=== PATIENT | male | born 1985 | race Caucasian/White ===

== ENCOUNTER 2021-12-02 17:53 | Inpatient (IN) | payer MEDICAID, OTHER ==
[2021-12-02] MEDS ORDERED: ACETAMINOPHEN TAB 500 MG TAB PO STA (19:30)
[2021-12-02] MEDS ORDERED: SODIUM CHLORIDE 0.9% 1,000 ML IV STA (19:32)
--- NOTE | 2021-12-02 19:48 | ED ---
SOB HPI - General Chief Complaint: Shortness of Breath Stated Complaint: TRINI Time Seen by Provider: 12/02/21 19:32 Source: patient, RN notes reviewed Mode of arrival: wheelchair Limitations: physical limitation - History of Present Illness Initial Comments: This is a pleasant 36-year-old male who was sent to the ER from urgent care for shortness of breath. Patient states that he had an [id number] COVID-19 test which was positive November 19. Patient proceeded to get better but then worse again. Patient has had a fever, increasing shortness of breath. Patient also complaining of fatigue, body aches, and cough. Patient now stating that he is having difficulty walking. Patient has no significant past medical history. He does state that he previously had pneumonia. Nonsmoker. no changes in vision or hearing, no sore throat or difficulty with speech, no neck pain, no chest pain, no abdominal pain, no nausea or vomiting, no changes in urination or bowel movements, no numbness or tingling, no extremity pain, no skin rashes or lesions. MD Complaint: shortness of breath - Related Data Home Medications Medication Instructions Recorded Confirmed Amoxicillin/Potassium Clav 1 tab PO BID 12/02/21 12/02/21 [Augmentin 875-125 Tablet] Eslicarbazepine Acetate [Aptiom] 800 mg PO DAILY 12/02/21 12/02/21 Topiramate 200 mg PO BID 12/02/21 12/02/21 Allergies Allergy/AdvReac Type Severity Reaction Status Date / Time No Known Allergies Allergy Verified 12/02/21 20:54 Review of Systems ROS Statement: Those systems with pertinent positive or pertinent negative responses have been documented in the HPI. ROS Other: All systems not noted in ROS Statement are negative. Past Medical History Past Medical History: Seizure Disorder History of Any Multi-Drug Resistant Organisms: None Reported Past Surgical History: No Surgical Hx Reported Past Psychological History: No Psychological Hx Reported Smoking Status: Never smoker Past Alcohol Use History: None Reported Past Drug Use History: None Reported General Exam - General Exam Comments Initial Comments: Patient appears to be in distress secondary to difficulty breathing. Vital signs noted. Limitations: physical limitation General appearance: alert, in no apparent distress Head exam: Present: atraumatic, normocephalic, normal inspection Eye exam: Present: normal appearance, PERRL, EOMI. Absent: scleral icterus, conjunctival injection, periorbital swelling ENT exam: Present: normal exam, mucous membranes moist. Absent: normal oropharynx, mucous membranes dry Neck exam: Present: normal inspection. Absent: tenderness, meningismus, lymphadenopathy Respiratory exam: Present: normal lung sounds bilaterally, rales. Absent: respiratory distress, wheezes, rhonchi, stridor Cardiovascular Exam: Present: normal rhythm, tachycardia, normal heart sounds. Absent: systolic murmur, diastolic murmur, rubs, gallop, clicks GI/Abdominal exam: Present: soft, normal bowel sounds. Absent: distended, tenderness, guarding, rebound, rigid Extremities exam: Present: normal inspection, full ROM, normal capillary refill. Absent: tenderness, pedal edema, joint swelling, calf tenderness Back exam: Present: normal inspection Neurological exam: Present: alert, oriented X3, CN II-XII intact Psychiatric exam: Present: normal affect, normal mood Skin exam: Present: warm, dry, intact, normal color. Absent: rash Course Vital Signs 12/02/21 12/02/21 12/02/21 19:22 19:48 21:37 Temperature 101.7 F H 100.1 F H 98.9 F Pulse Rate 124 H 117 H 95 Respiratory 24 18 18 Rate Blood Pressure 106/69 130/86 130/86 O2 Sat by Pulse 93 L 96 Oximetry 12/02/21 12/03/21 12/03/21 23:31 01:08 03:08 Temperature Pulse Rate 86 83 72 Respiratory 20 18 18 Rate Blood Pressure 143/86 133/90 133/90 O2 Sat by Pulse 85 L 95 93 L Oximetry - Reevaluation(s) Reevaluation #1: 12/02/21 20:44 Patient's d-dimer is 4.22 patient rechecked and it is essentially unchanged. Reevaluation #2: 12/02/21 23:38 Patient reevaluated E ambulated the patient room air and he desaturated down to 85%. Patient will require admission to the hospital. Consultation placed for the hospitalist. Medical Decision Making - Medical Decision Making The patient's symptomology, patient likely has COVID-19 pneumonia. Of course other viral/bacterial etiologies are within the differential. Given that fact that the patient started to get better then worse again. Pulmonary embolism also within the differential. Case was discussed in detail [facility] Travis Oreilly patient admitted to Dr. Benton Patient outside the window for them to severe. Given dexamethasone here in the ER. Patient resting complaint on 3 L of oxygen via nasal cannula at rest. - Lab Data Result diagrams: 12/02/21 19:54 12/02/21 19:54 Lab Results 12/02/21 12/02/21 12/02/21 Range/Units 19:54 19:54 19:54 WBC 12.6 H (3.8-10.6) k/uL RBC 4.70 (4.30-5.90) m/uL Hgb 13.3 (13.0-17.5) gm/dL Hct 40.1 (39.0-53.0) % MCV 85.4 (80.0-100.0) fL MCH 28.4 (25.0-35.0) pg MCHC 33.3 (31.0-37.0) g/dL RDW 12.8 (11.5-15.5) % Plt Count 830 H (150-450) k/uL MPV 7.4 Neutrophils % 86 % Lymphocytes % 6 % Monocytes % 4 % Eosinophils % 2 % Basophils % 1 % Neutrophils # 10.9 H (1.3-7.7) k/uL Lymphocytes # 0.8 L (1.0-4.8) k/uL Monocytes # 0.5 (0-1.0) k/uL Eosinophils # 0.3 (0-0.7) k/uL Basophils # 0.1 (0-0.2) k/uL D-Dimer (<0.60) mg/L FEU Sodium 138 (137-145) mmol/L Potassium 4.3 (3.5-5.1) mmol/L Chloride 110 H (98-107) mmol/L Carbon Dioxide 17 L (22-30) mmol/L Anion Gap 11 mmol/L BUN 17 (9-20) mg/dL Creatinine 0.89 (0.66-1.25) mg/dL Est GFR (CKD-EPI)AfAm >90 (>60 ml/min/1.73 sqM) Est GFR (CKD-EPI)NonAf >90 (>60 ml/min/1.73 sqM) Glucose 117 H (74-99) mg/dL Lactic Ac Sepsis Rflx Plasma Lactic Acid Rajendra 2.3 H* (0.7-2.0) mmol/L Calcium 8.4 (8.4-10.2) mg/dL Magnesium 2.6 H (1.6-2.3) mg/dL Total Bilirubin 0.6 (0.2-1.3) mg/dL AST 80 H (17-59) U/L ALT 116 H (4-49) U/L Alkaline Phosphatase 197 H (38-126) U/L Lactate Dehydrogenase (313-618) U/L Troponin I (0.000-0.034) ng/mL C-Reactive Protein (<1.0) mg/dL Total Protein 7.4 (6.3-8.2) g/dL Albumin 3.4 L (3.5-5.0) g/dL Influenza Type A (PCR) (Not Detectd) Influenza Type B (PCR) (Not Detectd) RSV (PCR) (Not Detectd) SARS-CoV-2 (PCR) (Not Detectd) 12/02/21 12/02/21 12/02/21 Range/Units 19:54 19:54 19:54 WBC (3.8-10.6) k/uL RBC (4.30-5.90) m/uL Hgb (13.0-17.5) gm/dL Hct (39.0-53.0) % MCV (80.0-100.0) fL MCH (25.0-35.0) pg MCHC (31.0-37.0) g/dL RDW (11.5-15.5) % Plt Count (150-450) k/uL MPV Neutrophils % % Lymphocytes % % Monocytes % % Eosinophils % % Basophils % % Neutrophils # (1.3-7.7) k/uL Lymphocytes # (1.0-4.8) k/uL Monocytes # (0-1.0) k/uL Eosinophils # (0-0.7) k/uL Basophils # (0-0.2) k/uL D-Dimer 4.22 H (<0.60) mg/L FEU Sodium (137-145) mmol/L Potassium (3.5-5.1) mmol/L Chloride (98-107) mmol/L Carbon Dioxide (22-30) mmol/L Anion Gap mmol/L BUN (9-20) mg/dL Creatinine (0.66-1.25) mg/dL Est GFR (CKD-EPI)AfAm (>60 ml/min/1.73 sqM) Est GFR (CKD-EPI)NonAf (>60 ml/min/1.73 sqM) Glucose (74-99) mg/dL Lactic Ac Sepsis Rflx Plasma Lactic Acid Rajendra (0.7-2.0) mmol/L Calcium (8.4-10.2) mg/dL Magnesium (1.6-2.3) mg/dL Total Bilirubin (0.2-1.3) mg/dL AST (17-59) U/L ALT (4-49) U/L Alkaline Phosphatase (38-126) U/L Lactate Dehydrogenase (313-618) U/L Troponin I <0.012 (0.000-0.034) ng/mL C-Reactive Protein (<1.0) mg/dL Total Protein (6.3-8.2) g/dL Albumin (3.5-5.0) g/dL Influenza Type A (PCR) Not Detected (Not Detectd) Influenza Type B (PCR) Not Detected (Not Detectd) RSV (PCR) Not Detected (Not Detectd) SARS-CoV-2 (PCR) Detected A (Not Detectd) 12/02/21 12/02/21 12/02/21 Range/Units 19:54 21:04 23:17 WBC (3.8-10.6) k/uL RBC (4.30-5.90) m/uL Hgb (13.0-17.5) gm/dL Hct (39.0-53.0) % MCV (80.0-100.0) fL MCH (25.0-35.0) pg MCHC (31.0-37.0) g/dL RDW (11.5-15.5) % Plt Count (150-450) k/uL MPV Neutrophils % % Lymphocytes % % Monocytes % % Eosinophils % % Basophils % % Neutrophils # (1.3-7.7) k/uL Lymphocytes # (1.0-4.8) k/uL Monocytes # (0-1.0) k/uL Eosinophils # (0-0.7) k/uL Basophils # (0-0.2) k/uL D-Dimer (<0.60) mg/L FEU Sodium (137-145) mmol/L Potassium (3.5-5.1) mmol/L Chloride (98-107) mmol/L Carbon Dioxide (22-30) mmol/L Anion Gap mmol/L BUN (9-20) mg/dL Creatinine (0.66-1.25) mg/dL Est GFR (CKD-EPI)AfAm (>60 ml/min/1.73 sqM) Est GFR (CKD-EPI)NonAf (>60 ml/min/1.73 sqM) Glucose (74-99) mg/dL Lactic Ac Sepsis Rflx Y Plasma Lactic Acid Rajendra 1.3 (0.7-2.0) mmol/L Calcium (8.4-10.2) mg/dL Magnesium (1.6-2.3) mg/dL Total Bilirubin (0.2-1.3) mg/dL AST (17-59) U/L ALT (4-49) U/L Alkaline Phosphatase (38-126) U/L Lactate Dehydrogenase 1613 H (313-618) U/L Troponin I (0.000-0.034) ng/mL C-Reactive Protein 25.6 H (<1.0) mg/dL Total Protein (6.3-8.2) g/dL Albumin (3.5-5.0) g/dL Influenza Type A (PCR) (Not Detectd) Influenza Type B (PCR) (Not Detectd) RSV (PCR) (Not Detectd) SARS-CoV-2 (PCR) (Not Detectd) - EKG Data EKG Comments: EKG done at 2017 and read by the ED attending physician reveals right bundle branch like with QRS duration of 122 ms. No evidence of ST elevation or acute ST or T-wave changes. Normal axis. Sinus tachycardia rate of 114. Disposition Clinical Impression: Acute respiratory failure due to COVID-19, Pneumonia due to COVID-19 virus Disposition: ADMITTED IP TO THIS HOSP Condition: Fair Is patient prescribed a controlled substance at d/c from ED?: No Decision Time: 00:04
[2021-12-02 20:27] LABS: Basophils # (A) 0.1 k/uL (0-0.2); Basophils % (A) 1 %; Eosinophils # (A) 0.3 k/uL (0-0.7); Eosinophils % (A) 2 %; HCT 40.1 % (39.0-53.0); HGB 13.3 gm/dL (13.0-17.5); Lymphocytes # (A) 0.8 k/uL (1.0-4.8); Lymphocytes % (A) 6 %; MCH 28.4 pg (25.0-35.0); MCHC 33.3 g/dL (31.0-37.0); MCV 85.4 fL (80.0-100.0); Mean Platelet Volume 7.4; Monocytes # (A) 0.5 k/uL (0-1.0); Monocytes % (A) 4 %; Neutrophils # (A) 10.9 k/uL (1.3-7.7); Neutrophils % (A) 86 %; Platelet Count 830 k/uL (150-450); RDW 12.8 % (11.5-15.5); WBC 12.6 k/uL (3.8-10.6)
[2021-12-02 21:04] LABS: ALT 116 U/L (4-49); AST 80 U/L (17-59); African American GFR (CKD) >90 (>60 ml/min/1.73 sqM); Albumin 3.4 g/dL (3.5-5.0); Alkaline Phosphatase 197 U/L (38-126); Anion Gap 11 mmol/L; Blood Urea Nitrogen 17 mg/dL (9-20); Calcium 8.4 mg/dL (8.4-10.2); Carbon Dioxide 17 mmol/L (22-30); Chloride 110 mmol/L (98-107); Glucose 117 mg/dL (74-99); Magnesium 2.6 mg/dL (1.6-2.3); Non-African American GFR(CKD) >90 (>60 ml/min/1.73 sqM); Potassium 4.3 mmol/L (3.5-5.1); Sodium 138 mmol/L (137-145); Total Bilirubin 0.6 mg/dL (0.2-1.3); Total Protein 7.4 g/dL (6.3-8.2)
--- NOTE | 2021-12-02 21:22 | XR ---
EXAMINATION TYPE: XR chest 2V DATE OF EXAM: 12/02/2021 COMPARISON: None available HISTORY: Difficulty breathing TECHNIQUE: Frontal and lateral views of the chest are obtained. FINDINGS: There is bilateral diffuse patchy opacities. No pleural effusion, or pneumothorax seen. T he cardiac silhouette size is within normal limits. The osseous structures are intact. IMPRESSION: Diffuse infiltrates.
--- NOTE | 2021-12-02 22:20 | CT ---
EXAMINATION TYPE: CT angio chest DATE OF EXAM: 12/02/2021 COMPARISON: None HISTORY: Elevated d-dimer and covid. CT DLP: 492.8 mGycm Automated exposure control for dose reduction was used. CONTRAST: Performed with IV Contrast, patient injected with 100ml mL of Isovue 370. There are Three-D postprocessed images. There is extensive patchy airspace infiltrate with multiple air bronchograms throughout both lung fie lds. There is no pleural effusion. There is no pericardial effusion. Heart size is fairly normal. There is no mediastinal adenopathy. There are no hilar masses. Heart size is fairly normal. There is normal contrast opacification of the pulmonary arteries. There are no filling defects. Thoracic aorta is intact. There is no aneurysm or dissection. Thoracic vertebra show multiple vertebra with slight anterior wedging involving T2 and T3 and T4 T5 T 6 and T10 vertebra. There is up to 5% loss of height. Sternum is intact. The upper abdominal soft tis sues are intact. IMPRESSION: No evidence of pulmonary embolism. Extensive multifocal pneumonia.
[2021-12-02] MEDS ORDERED: DEXAMETHASONE SOD PHOSPHATE 4 MG/ML 1 ML VIAL IVP STA (23:39)
[2021-12-02] MEDS ORDERED: ACETAMINOPHEN TAB 500 MG TAB PO PRN (23:49)
[2021-12-03] MEDS: ENOXAPARIN 60 MG/0.6 ML SYRINGE SQ SCH ×2 (00:18→08:40)
[2021-12-03 02:22] LABS: C Reactive Protein 25.6 mg/dL (<1.0)
[2021-12-03 07:30] LABS: ALT 95 U/L (4-49); AST 48 U/L (17-59); African American GFR (CKD) >90 (>60 ml/min/1.73 sqM); Alkaline Phosphatase 163 U/L (38-126); Anion Gap 11 mmol/L; Blood Urea Nitrogen 16 mg/dL (9-20); Calcium 8.2 mg/dL (8.4-10.2); Carbon Dioxide 17 mmol/L (22-30); Chloride 112 mmol/L (98-107); Glucose 141 mg/dL (74-99); LDH 1103 U/L (313-618); Non-African American GFR(CKD) >90 (>60 ml/min/1.73 sqM); Potassium 4.9 mmol/L (3.5-5.1); Sodium 140 mmol/L (137-145); Total Bilirubin 0.5 mg/dL (0.2-1.3); Total Protein 6.6 g/dL (6.3-8.2)
[2021-12-03 07:46] LABS: Basophils # (A) 0.1 k/uL (0-0.2); Basophils % (A) 1 %; Eosinophils % (A) 1 %; HCT 38.4 % (39.0-53.0); HGB 12.4 gm/dL (13.0-17.5); Lymphocytes # (A) 0.5 k/uL (1.0-4.8); Lymphocytes % (A) 6 %; MCH 28.4 pg (25.0-35.0); MCHC 32.2 g/dL (31.0-37.0); MCV 88.4 fL (80.0-100.0); Mean Platelet Volume 7.5; Monocytes # (A) 0.3 k/uL (0-1.0); Monocytes % (A) 4 %; Neutrophils # (A) 6.7 k/uL (1.3-7.7); Neutrophils % (A) 87 %; Platelet Count 852 k/uL (150-450); RBC 4.35 m/uL (4.30-5.90); RDW 13.4 % (11.5-15.5); WBC 7.7 k/uL (3.8-10.6)
[2021-12-03 07:52] LABS: C Reactive Protein 21.4 mg/dL (<1.0)
[2021-12-03] MEDS: ALBUTEROL HFA INHALER INHALATION PRN (08:36)
[2021-12-03] MEDS: DEXAMETHASONE SOD PHOSPHATE 10 MG/ML 1 ML VIAL IV SCH (08:40)
--- NOTE | 2021-12-03 10:36 | P.CNPUL ---
History of Present Illness Consult date: 12/03/21 Reason for consult: dyspnea, pneumonia History of present illness: 36-year-old male coming in for COVID 19 related pneumonia. Origin infection was on 11/19/2022. The patient since then has been having progressive worsening shortness of breath. He had a pulse oximeter at home. While at rest, he was maintaining her pulse ox above 90%. With activity, he was desaturating. He was having body aches and fever and shortness of breath and a dry cough and difficulties with shortness of breath with mobility and activity. No previous history of DVT or pulmonary embolism. He came into the emergency of the chest that showed diffuse bilateral pulmonary infiltrates. The computed tomography scan of the chest showed evidence of bilateral COVID 19 related pneumonia that was quite extensive. No evidence of any pulmonary embolism. The patient had multiple vertebral wedging involving T2 and T3 and T4 and T5 and T6 and T10. The patient has not received any outpatient treatment. No steroid intake. No use of any monoclonal antibodies. He has taken only one messenger RNA vaccination approximately a week prior to his infection. He has taken the [employer] shots. No altered mentation. No nausea or vomiting or abdominal pain. His blood work is showing a elevated elevated inflammatory markers. His d-dimer is at 3.17. LDH level was 1613. CRP level is at 25.6. Troponin is a been negative. Rest of the electrolytes were essentially adequate and the patient has a component of non-anion gap metabolic acidosis with a serum bicarb of 17. The white cell count was at 7.7 with a hemoglobin of 12.4. His comorbid conditions included seizure disorder which is currently inactive and stable on treatment. Review of Systems Constitutional: Reports fatigue, Reports weakness Eyes: denies as per HPI, denies blurred vision, denies bulging eye, denies decreased vision, denies diplopia, denies discharge, denies dry eye, denies irritation, denies itching, denies pain, denies photophobia, denies loss of peripheral vision, denies loss of vision, denies tunnel vision/blind spots Ears: deny: decreased hearing, ear discharge, earache, tinnitus Ears, nose, mouth and throat: Reports as per HPI Breasts: absent: as per HPI, gynecomastia Cardiovascular: Reports decreased exercise tolerance, Reports dyspnea on exertion Respiratory: Reports cough, Reports dyspnea Gastrointestinal: Reports as per HPI Genitourinary: Reports as per HPI Musculoskeletal: Reports as per HPI Musculoskeletal: absent: ankle pain, ankle stiffness, ankle swelling, as per HPI, elbow pain, elbow stiffness, elbow swelling, foot pain, foot stiffness, foot swelling, hand pain, hand stiffness, hand swelling, hip pain, hip stiffness, hip swelling, knee pain, knee stiffness, knee swelling, shoulder pain, shoulder stiffness, shoulder swelling, wrist pain, wrist stiffness, wrist swelling Integumentary: Reports as per HPI Neurological: Reports as per HPI Psychiatric: Reports as per HPI Endocrine: Reports as per HPI Hematologic/Lymphatic: Reports as per HPI Allergic/Immunologic: Reports as per HPI Past Medical History Past Medical History: Seizure Disorder History of Any Multi-Drug Resistant Organisms: None Reported Past Surgical History: No Surgical Hx Reported Past Psychological History: No Psychological Hx Reported Smoking Status: Never smoker Past Alcohol Use History: None Reported Past Drug Use History: None Reported Medications and Allergies Home Medications Medication Instructions Recorded Confirmed Type Amoxicillin/Potassium Clav 1 tab PO BID 12/02/21 12/02/21 History [Augmentin 875-125 Tablet] Eslicarbazepine Acetate [Aptiom] 800 mg PO DAILY 12/02/21 12/02/21 History Topiramate 200 mg PO BID 12/02/21 12/02/21 History Allergies Allergy/AdvReac Type Severity Reaction Status Date / Time No Known Allergies Allergy Verified 12/02/21 20:54 Physical Exam Vitals: Vital Signs Temp Pulse Resp BP Pulse Ox 12/03/21 08:44 97.9 F 97 20 131/81 94 L 12/03/21 08:22 92 L 12/03/21 06:02 72 18 124/84 97 12/03/21 04:29 70 18 136/85 95 12/03/21 03:08 72 18 133/90 93 L 12/03/21 01:08 83 18 133/90 95 12/02/21 23:31 86 20 143/86 85 L 12/02/21 21:37 98.9 F 95 18 130/86 96 12/02/21 19:48 100.1 F H 117 H 18 130/86 93 L 12/02/21 19:22 101.7 F H 124 H 24 106/69 Intake and Output 12/02/21 12/03/21 12/03/21 22:59 06:59 14:59 Other: Weight 104.326 kg Gen. appearance the patient is calm and comfortable and currently is on 5 L nasal cannula, breathing is nonlabored. He has occasional dry cough. Head exam was generally normal. There was no scleral icterus or corneal arcus. Mucous membranes were moist. Neck was supple and without jugular venous distension, thyromegaly, or carotid bruits. Carotids were easily palpable bilaterally. There was no adenopathy. Lungs other the medicine the patient's crackles in the mid and lower lung his bilaterally and these are soft crackles Cardiac exam revealed the PMI to be normally situated and sized. The rhythm was regular and no extrasystoles were noted during several minutes of auscultation. The first and second heart sounds were normal and physiologic splitting of the second heart sound was noted. There were no murmurs, rubs, clicks, or gallops. Abdominal exam revealed normal bowel sounds. The abdomen was soft, non-tender, and without masses, organomegaly, or appreciable enlargement of the abdominal aorta. Examination of the extremities revealed easily palpable radial, femoral and pedal pulses. There was no cyanosis, clubbing or edema. Neurologically, the patient is awake and alert and the patient does not have any focal neurological deficit. Cranial nerves are essentially intact. Examination of the skin revealed no evidence of significant rashes, suspicious appearing nevi or other concerning lesions. Results - Laboratory Findings CBC and BMP: 12/03/21 06:28 12/03/21 06:28 PT/INR, D-dimer D-Dimer 3.17 mg/L FEU (<0.60) H 12/03/21 06:28 Abnormal lab findings: Abnormal Labs 12/02/21 12/02/21 12/02/21 19:54 19:54 19:54 WBC 12.6 H Hgb Hct Plt Count 830 H Neutrophils # 10.9 H Lymphocytes # 0.8 L D-Dimer Chloride 110 H Carbon Dioxide 17 L Glucose 117 H Plasma Lactic Acid Rajendra 2.3 H* Calcium Magnesium 2.6 H Ferritin AST 80 H ALT 116 H Alkaline Phosphatase 197 H Lactate Dehydrogenase C-Reactive Protein Albumin 3.4 L SARS-CoV-2 (PCR) 12/02/21 12/02/21 12/02/21 19:54 19:54 19:54 WBC Hgb Hct Plt Count Neutrophils # Lymphocytes # D-Dimer 4.22 H Chloride Carbon Dioxide Glucose Plasma Lactic Acid Rajendra Calcium Magnesium Ferritin 1234.0 H AST ALT Alkaline Phosphatase Lactate Dehydrogenase 1613 H C-Reactive Protein 25.6 H Albumin SARS-CoV-2 (PCR) Detected A 12/03/21 12/03/21 12/03/21 06:28 06:28 06:28 WBC Hgb 12.4 L Hct 38.4 L Plt Count 852 H Neutrophils # Lymphocytes # 0.5 L D-Dimer 3.17 H Chloride 112 H Carbon Dioxide 17 L Glucose 141 H Plasma Lactic Acid Rajendra Calcium 8.2 L Magnesium Ferritin AST ALT 95 H Alkaline Phosphatase 163 H Lactate Dehydrogenase 1103 H C-Reactive Protein 21.4 H Albumin 3.0 L SARS-CoV-2 (PCR) Assessment and Plan Plan: 1 acute COVID 19 related pneumonia. The patient became symptomatically on 11/19/2022. The patient has already received only one shot of messenger RNA Pf[employer] vaccine approximately a week prior to him being symptomatic. The patient is presenting with worsening shortness of breath and hypoxic respiratory failure. The patient has diffuse bilateral pulmonary infiltrates consistent with COVID [address] angiogram showed no evidence of any pulmonary embolism 2 acute hypoxic respiratory failure secondary to above currently on 5 L about 2 by nasal cannula 3 dyspnea and cough secondary to above 4 elevated inflammatory markers secondary to above 5 history of seizure disorders. Patient is well-controlled on medication Plan Admit this patient to the hospital and titrate oxygen flow to maintain a saturation above 90%, currently on 5 L nasal cannula start the patient Decadron 6 mg IV every 24 hours Patient is outside the window for Remdesivir treatment start Patient Lovenox 40 mg subcu every 24 hours Monitor inflammatory markers Multivitamins including vitamin C and vitamin D and zinc supplements Resume medications including antiepileptic medication We'll continue to follow make further recommendations based on his progress.
--- NOTE | 2021-12-03 12:41 | P.HPIM ---
History of Present Illness This is a pleasant 36 years old male with past medical history of seizure He presents with fever after he was diagnosed with [place] it on 11/19, with associated fever and hypoxia since then. Also he noticed that he desaturates with exertion at home. Also he has some dry coughing. Is not fully vaccinated, he took only one shot prior to got infected by about one week. He denies smoking, alcohol or illicit drugs. He has some poor appetite and mild diarrhea. No chest pain or abdominal pain He denies smoking, alcohol or illicit drugs On admission he was hypoxic at 85% on room air. Also had a fever of 101.4. Breathing at a rate of 20 and heart rate of 86. Blood pressure is stable. He had leukocytosis 12.6 and 7.7, hemoglobin 12.4 and platelets elevated 852 with mild lymphopenia. D-dimer 4.2 and 3.1. BMP is unremarkable. Liver enzymes slightly elevated Portcalcitonin and 0.19. Influenza virus is negative, RSV is negative but has positive PCR for coronavirus Review of Systems CONSTITUTIONAL: No fever, no malaise, no fatigue. HEENT: No recent visual problems or hearing problems. Denied any sore throat. CARDIOVASCULAR: No orthopnea, PND, no palpitations, no syncope. PULMONARY: No chest wall tenderness, no hemoptysis. GASTROINTESTINAL: No diarrhea, no nausea, no vomiting, no abdominal pain. Normoactive bowel sounds. NEUROLOGICAL: No headaches, no weakness, no numbness. HEMATOLOGICAL: Denies any bleeding or petechiae. GENITOURINARY: Denies any burning micturition, frequency, or urgency. MUSCULOSKELETAL/RHEUMATOLOGICAL: Denies any joint pain, swelling, or any muscle pain. ENDOCRINE: Denies any polyuria or polydipsia. Past Medical History Past Medical History: Seizure Disorder History of Any Multi-Drug Resistant Organisms: None Reported Past Surgical History: No Surgical Hx Reported Past Psychological History: No Psychological Hx Reported Smoking Status: Never smoker Past Alcohol Use History: None Reported Past Drug Use History: None Reported Medications and Allergies Home Medications Medication Instructions Recorded Confirmed Type Amoxicillin/Potassium Clav 1 tab PO BID 12/02/21 12/02/21 History [Augmentin 875-125 Tablet] Eslicarbazepine Acetate [Aptiom] 800 mg PO DAILY 12/02/21 12/02/21 History Topiramate 200 mg PO BID 12/02/21 12/02/21 History Allergies Allergy/AdvReac Type Severity Reaction Status Date / Time No Known Allergies Allergy Verified 12/02/21 20:54 Physical Exam Vitals: Vital Signs Temp Pulse Resp BP Pulse Ox 12/03/21 08:44 97.9 F 97 20 131/81 94 L 12/03/21 08:22 92 L 12/03/21 06:02 72 18 124/84 97 12/03/21 04:29 70 18 136/85 95 12/03/21 03:08 72 18 133/90 93 L 12/03/21 01:08 83 18 133/90 95 12/02/21 23:31 86 20 143/86 85 L 12/02/21 21:37 98.9 F 95 18 130/86 96 12/02/21 19:48 100.1 F H 117 H 18 130/86 93 L 12/02/21 19:22 101.7 F H 124 H 24 106/69 Intake and Output 12/02/21 12/03/21 12/03/21 22:59 06:59 14:59 Other: Weight 104.326 kg GENERAL: The patient is alert and oriented x3, not in any acute distress. Well developed, well nourished. HEENT: Pupils are round and equally reacting to light. EOMI. No scleral icterus. No conjunctival pallor. Normocephalic, atraumatic. No pharyngeal erythema. No thyromegaly. CARDIOVASCULAR: S1 and S2 present. No murmurs, rubs, or gallops. -PULMONARY: Chest is clear to auscultation, no wheezing . Bilateral crackles. Mild tachypnea ABDOMEN: Soft, nontender, nondistended, normoactive bowel sounds. No palpable organomegaly. MUSCULOSKELETAL: No joint swelling or deformity. EXTREMITIES: No cyanosis, clubbing, or pedal edema. NEUROLOGICAL: Gross neurological examination did not reveal any focal deficits. SKIN: No rashes. No petechiae Results CBC & Chem 7: 12/03/21 06:28 12/03/21 06:28 Labs: Abnormal Lab Results - Last 24 Hours (Table) 12/02/21 12/02/21 12/02/21 Range/Units 19:54 19:54 19:54 WBC 12.6 H (3.8-10.6) k/uL Hgb (13.0-17.5) gm/dL Hct (39.0-53.0) % Plt Count 830 H (150-450) k/uL Neutrophils # 10.9 H (1.3-7.7) k/uL Lymphocytes # 0.8 L (1.0-4.8) k/uL D-Dimer (<0.60) mg/L FEU Chloride 110 H (98-107) mmol/L Carbon Dioxide 17 L (22-30) mmol/L Glucose 117 H (74-99) mg/dL Plasma Lactic Acid Rajendra 2.3 H* (0.7-2.0) mmol/L Calcium (8.4-10.2) mg/dL Magnesium 2.6 H (1.6-2.3) mg/dL Ferritin (22.0-322.0) ng/mL AST 80 H (17-59) U/L ALT 116 H (4-49) U/L Alkaline Phosphatase 197 H (38-126) U/L Lactate Dehydrogenase (313-618) U/L C-Reactive Protein (<1.0) mg/dL Albumin 3.4 L (3.5-5.0) g/dL SARS-CoV-2 (PCR) (Not Detectd) 12/02/21 12/02/21 12/02/21 Range/Units 19:54 19:54 19:54 WBC (3.8-10.6) k/uL Hgb (13.0-17.5) gm/dL Hct (39.0-53.0) % Plt Count (150-450) k/uL Neutrophils # (1.3-7.7) k/uL Lymphocytes # (1.0-4.8) k/uL D-Dimer 4.22 H (<0.60) mg/L FEU Chloride (98-107) mmol/L Carbon Dioxide (22-30) mmol/L Glucose (74-99) mg/dL Plasma Lactic Acid Rajendra (0.7-2.0) mmol/L Calcium (8.4-10.2) mg/dL Magnesium (1.6-2.3) mg/dL Ferritin 1234.0 H (22.0-322.0) ng/mL AST (17-59) U/L ALT (4-49) U/L Alkaline Phosphatase (38-126) U/L Lactate Dehydrogenase 1613 H (313-618) U/L C-Reactive Protein 25.6 H (<1.0) mg/dL Albumin (3.5-5.0) g/dL SARS-CoV-2 (PCR) Detected A (Not Detectd) 12/03/21 12/03/21 12/03/21 Range/Units 06:28 06:28 06:28 WBC (3.8-10.6) k/uL Hgb 12.4 L (13.0-17.5) gm/dL Hct 38.4 L (39.0-53.0) % Plt Count 852 H (150-450) k/uL Neutrophils # (1.3-7.7) k/uL Lymphocytes # 0.5 L (1.0-4.8) k/uL D-Dimer 3.17 H (<0.60) mg/L FEU Chloride 112 H (98-107) mmol/L Carbon Dioxide 17 L (22-30) mmol/L Glucose 141 H (74-99) mg/dL Plasma Lactic Acid Rajendra (0.7-2.0) mmol/L Calcium 8.2 L (8.4-10.2) mg/dL Magnesium (1.6-2.3) mg/dL Ferritin (22.0-322.0) ng/mL AST (17-59) U/L ALT 95 H (4-49) U/L Alkaline Phosphatase 163 H (38-126) U/L Lactate Dehydrogenase 1103 H (313-618) U/L C-Reactive Protein 21.4 H (<1.0) mg/dL Albumin 3.0 L (3.5-5.0) g/dL SARS-CoV-2 (PCR) (Not Detectd) Assessment and Plan Assessment: Bilateral Covid pneumonia Acute hypoxic respiratory failure Increased inflammatory markers Mild elevated liver enzymes secondary to obesity infection CTA of the chest: No pulmonary embolism, bilateral extensive multifocal infil trates Plan: this is a pleasant 36 years old male who presents with bilateral covid pneumonia, and hypoxia Continue with dexamethasone Continue with vitamin C, vitamin D and zinc Pulmonary consult Labs and medication were reviewed.. Continue same treatment. Continue with symptomatic treatment. Resume home medication. Monitor lytes and vitals. DVT and GI prophylaxis. Further recommendations depends on the clinical course of the patient DVT prophylaxis: SubcutaneouS Lovenox GI Prophylaxis: Pepcid Prognosis is guarded
[2021-12-03] MEDS: TOPIRAMATE 100 MG TAB PO SCH (22:34)
[2021-12-04 06:22] LABS: Glucose,Whole Blood 99 mg/dL (75-99)
[2021-12-04 08:41] LABS: Basophils # (A) 0.1 k/uL (0-0.2); Basophils % (A) 1 %; Eosinophils # (A) 0.2 k/uL (0-0.7); Eosinophils % (A) 1 %; HCT 39.1 % (39.0-53.0); HGB 12.5 gm/dL (13.0-17.5); Lymphocytes # (A) 1.6 k/uL (1.0-4.8); Lymphocytes % (A) 13 %; MCV 87.7 fL (80.0-100.0); Mean Platelet Volume 7.8; Monocytes # (A) 0.7 k/uL (0-1.0); Monocytes % (A) 6 %; Neutrophils # (A) 9.2 k/uL (1.3-7.7); Neutrophils % (A) 77 %; RBC 4.46 m/uL (4.30-5.90); RDW 13.1 % (11.5-15.5); WBC 11.9 k/uL (3.8-10.6)
[2021-12-04 08:45] LABS: ALT 122 U/L (4-49); AST 65 U/L (17-59); African American GFR (CKD) >90 (>60 ml/min/1.73 sqM); Alkaline Phosphatase 144 U/L (38-126); Anion Gap 10 mmol/L; Blood Urea Nitrogen 19 mg/dL (9-20); Calcium 8.6 mg/dL (8.4-10.2); Carbon Dioxide 16 mmol/L (22-30); Chloride 113 mmol/L (98-107); Glucose 99 mg/dL (74-99); LDH 1180 U/L (313-618); Non-African American GFR(CKD) >90 (>60 ml/min/1.73 sqM); Sodium 139 mmol/L (137-145); Total Bilirubin 0.4 mg/dL (0.2-1.3); Total Protein 6.6 g/dL (6.3-8.2)
[2021-12-04 08:53] LABS: Potassium 4.4 mmol/L (3.5-5.1)
[2021-12-04 08:59] LABS: Platelet Count 1025 k/uL (150-450)
[2021-12-04] MEDS ORDERED: ENOXAPARIN 60 MG/0.6 ML SYRINGE SQ SCH (09:00)
[2021-12-04 09:45] LABS: C Reactive Protein 6.4 mg/dL (<1.0)
[2021-12-04] MEDS: DEXAMETHASONE SOD PHOSPHATE 10 MG/ML 1 ML VIAL IV SCH (10:01)
[2021-12-04] MEDS: FAMOTIDINE 20 MG TAB PO SCH (10:02)
[2021-12-04] MEDS: TOPIRAMATE 100 MG TAB PO SCH ×2 (10:02→19:49)
[2021-12-04] MEDS: ASCORBIC ACID 500 MG TAB PO SCH (10:02)
[2021-12-04] MEDS: ZINC SULFATE 220 MG CAP PO SCH (10:02)
[2021-12-04] MEDS: CHOLECALCIFEROL 25 MCG (1000 IU) TABLET PO SCH (10:02)
[2021-12-04] MEDS: ESLICARBAZEPINE 800 MG PO SCH (10:28)
--- NOTE | 2021-12-04 11:04 | P.PN ---
Subjective This is a pleasant 36 years old male with past medical history of seizure He presents with fever after he was diagnosed with [place] it on 11/19, with associated fever and hypoxia since then. Also he noticed that he desaturates with exertion at home. Also he has some dry coughing. Is not fully vaccinated, he took only one shot prior to got infected by about one week. He denies smoking, alcohol or illicit drugs. He has some poor appetite and mild diarrhea. No chest pain or abdominal pain He denies smoking, alcohol or illicit drugs On admission he was hypoxic at 85% on room air. Also had a fever of 101.4. Breathing at a rate of 20 and heart rate of 86. Blood pressure is stable. He had leukocytosis 12.6 and 7.7, hemoglobin 12.4 and platelets elevated 852 with mild lymphopenia. D-dimer 4.2 and 3.1. BMP is unremarkable. Liver enzymes slightly elevated Portcalcitonin and 0.19. Influenza virus is negative, RSV is negative but has positive PCR for coronavirus 12/04/2021 Patient still complaining of from mild dyspnea however he has good appetite and he has mild diarrhea. He is Vitas looks stable and his oxygen requirement still at 5 L/m oxygen saturation of 94%. He is febrile today this morning. D-dimer is stable at 3.6, LDH stable at 1180, C-reactive protein is slightly lower at 6.4. He has some mild leukocytosis at 11.9 most likely secondary to steroid effect. Hemoglobin is stable at 12.5. Platelets elevated at 1025 He remains on dexamethasone and vitamin C, D and zinc. Also he is on Lovenox and Pepcid. Objective - Vital Signs Vital signs: Vital Signs Temp 97.8 F 12/04/21 08:30 Pulse 96 12/04/21 08:30 Resp 19 12/04/21 08:30 BP 116/63 12/04/21 08:30 Pulse Ox 94 L 12/04/21 08:30 Intake & Output 12/03/21 12/04/21 12/04/21 18:59 06:59 18:59 Intake Total 480 240 Balance 480 240 Intake: Oral 480 240 Other: # Voids 2 - Exam GENERAL: The patient is alert and oriented x3, not in any acute distress. Well developed, well nourished. HEENT: Pupils are round and equally reacting to light. EOMI. No scleral icterus. No conjunctival pallor. Normocephalic, atraumatic. No pharyngeal erythema. No thyromegaly. CARDIOVASCULAR: S1 and S2 present. No murmurs, rubs, or gallops. -PULMONARY: Chest is clear to auscultation, no wheezing bilateral crackles. ABDOMEN: Soft, nontender, nondistended, normoactive bowel sounds. No palpable organomegaly. MUSCULOSKELETAL: No joint swelling or deformity. EXTREMITIES: No cyanosis, clubbing, or pedal edema. NEUROLOGICAL: Gross neurological examination did not reveal any focal deficits. SKIN: No rashes. no petechiae. - Labs CBC & Chem 7: 12/04/21 07:15 12/04/21 07:15 Labs: Abnormal Lab Results - Last 24 Hours (Table) 12/02/21 12/03/21 12/04/21 Range/Units 19:54 06:28 07:15 WBC 11.9 H (3.8-10.6) k/uL Hgb 12.5 L (13.0-17.5) gm/dL Plt Count 1025 H* (150-450) k/uL Neutrophils # 9.2 H (1.3-7.7) k/uL D-Dimer (<0.60) mg/L FEU Chloride (98-107) mmol/L Carbon Dioxide (22-30) mmol/L Ferritin 1072.0 H (22.0-322.0) ng/mL AST (17-59) U/L ALT (4-49) U/L Alkaline Phosphatase (38-126) U/L Lactate Dehydrogenase (313-618) U/L C-Reactive Protein (<1.0) mg/dL Albumin (3.5-5.0) g/dL Procalcitonin 0.19 H (0.02-0.09) ng/mL 12/04/21 12/04/21 Range/Units 07:15 07:15 WBC (3.8-10.6) k/uL Hgb (13.0-17.5) gm/dL Plt Count (150-450) k/uL Neutrophils # (1.3-7.7) k/uL D-Dimer 3.67 H (<0.60) mg/L FEU Chloride 113 H (98-107) mmol/L Carbon Dioxide 16 L (22-30) mmol/L Ferritin (22.0-322.0) ng/mL AST 65 H (17-59) U/L ALT 122 H (4-49) U/L Alkaline Phosphatase 144 H (38-126) U/L Lactate Dehydrogenase 1180 H (313-618) U/L C-Reactive Protein 6.4 H (<1.0) mg/dL Albumin 3.0 L (3.5-5.0) g/dL Procalcitonin (0.02-0.09) ng/mL Microbiology - Last 24 Hours (Table) 12/02/21 20:09 Blood Culture - Preliminary Blood No Growth after 24 hours 12/02/21 19:55 Blood Culture - Preliminary Blood No Growth after 24 hours Assessment and Plan Assessment: Bilateral Covid pneumonia Acute hypoxic respiratory failure Increased inflammatory markers Mild elevated liver enzymes secondary to obesity infection CTA of the chest: No pulmonary embolism, bilateral extensive multifocal infiltra kareen Plan: this is a pleasant 36 years old male who presents with bilateral covid pneumonia, and hypoxia Continue with dexamethasone Continue with vitamin C, vitamin D and zinc Pulmonary consult Labs and medication were reviewed.. Continue same treatment. Continue with symptomatic treatment. Resume home medication. Monitor lytes and vitals. DVT and GI prophylaxis. Further recommendations depends on the clinical course of the patient DVT prophylaxis: SubcutaneouS Lovenox GI Prophylaxis: Pepcid Prognosis is guarded
[2021-12-04 11:38] LABS: Glucose,Whole Blood 125 mg/dL (75-99)
[2021-12-04] MEDS: SODIUM BICARBONATE TAB 650 MG TAB PO SCH ×2 (15:38→19:49)
--- NOTE | 2021-12-04 17:01 | P.PN ---
Subjective Progress Note Date: 12/04/21 36-year-old male coming in for COVID 19 related pneumonia. [place] infection was on 11/19/2022. The patient since then has been having progressive worsening shortness of breath. He had a pulse oximeter at home. While at rest, he was maintaining her pulse ox above 90%. With activity, he was desaturating. He was having body aches and fever and shortness of breath and a dry cough and difficulties with shortness of breath with mobility and activity. No previous history of DVT or pulmonary embolism. He came into the emergency of the chest that showed diffuse bilateral pulmonary infiltrates. The computed tomography scan of the chest showed evidence of bilateral COVID 19 related pneumonia that w as quite extensive. No evidence of any pulmonary embolism. The patient had multiple vertebral wedging involving T2 and T3 and T4 and T5 and T6 and T10. The patient has not received any outpatient treatment. No steroid intake. No use of any monoclonal antibodies. He has taken only one messenger RNA vaccination approximately a week prior to his infection. He has taken the [employer] shots. No altered mentation. No nausea or vomiting or abdominal pain. His blood work is showing a elevated elevated inflammatory markers. His d-dimer is at 3.17. LDH level was 1613. CRP level is at 25.6. Troponin is a been negative. Rest of the electrolytes were essentially adequate and the patient has a component of non-anion gap metabolic acidosis with a serum bicarb of 17. The white cell count was at 7.7 with a hemoglobin of 12.4. His comorbid conditions included seizure disorder which is currently inactive and stable on treatment. On today's evaluation of 12/04/2021, the patient states she was same, his breathing is unlabored. He is getting short of breath with talking and having from accommodation. He remains on 40 to approximately nasal cannula. He was started on Decadron. He was also started on anticoagulation and the patient is currently on Lovenox DVT prophylaxis. The patient's blood work from today shows a d-dimer of 3.6 and the patient also had a LDH level of 1180 with a CPAP level of 6.4. Blood work shows also an ongoing issue with non-anion gap metabolic acidosis probably related to diarrhea which patient was having prior to his hospital admission. BNP is at 19 with a creatinine of 0.98. White cell count is 11.9 with a platelet count of 1025 and hemoglobin of 12.5. No altered mentation. No nausea. No vomiting. Diarrhea. No other significant events overnight. Objective - Vital Signs Vital signs: Vital Signs Temp 97.9 F 12/04/21 15:45 Pulse 86 12/04/21 15:45 Resp 18 12/04/21 15:45 BP 117/70 12/04/21 15:45 Pulse Ox 94 L 12/04/21 15:45 Intake & Output 12/03/21 12/04/21 12/04/21 18:59 06:59 18:59 Intake Total 480 1800 Balance 480 1800 Intake: Oral 480 1800 Other: # Voids 2 4 - Exam Gen. appearance the patient is calm and comfortable and currently is on 4 L nasal cannula, breathing is nonlabored. He has occasional dry cough. Head exam was generally normal. There was no scleral icterus or corneal arcus. Mucous membranes were moist. Neck was supple and without jugular venous distension, thyromegaly, or carotid bruits. Carotids were easily palpable bilaterally. There was no adenopathy. Lungs other the medicine the patient's crackles in the mid and lower lung his bilaterally and these are soft crackles Cardiac exam revealed the PMI to be normally situated and sized. The rhythm was regular and no extrasystoles were noted during several minutes of auscultation. The first and second heart sounds were normal and physiologic splitting of the second heart sound was noted. There were no murmurs, rubs, clicks, or gallops. Abdominal exam revealed normal bowel sounds. The abdomen was soft, non-tender, and without masses, organomegaly, or appreciable enlargement of the abdominal aorta. Examination of the extremities revealed easily palpable radial, femoral and pedal pulses. There was no cyanosis, clubbing or edema. Neurologically, the patient is awake and alert and the patient does not have any focal neurological deficit. Cranial nerves are essentially intact. Examination of the skin revealed no evidence of significant rashes, suspicious appearing nevi or other concerning lesions. - Labs CBC & Chem 7: 12/04/21 07:15 12/04/21 07:15 Labs: Abnormal Lab Results - Last 24 Hours (Table) 12/04/21 12/04/21 12/04/21 Range/Units 07:15 07:15 07:15 WBC 11.9 H (3.8-10.6) k/uL Hgb 12.5 L (13.0-17.5) gm/dL Plt Count 1025 H* (150-450) k/uL Neutrophils # 9.2 H (1.3-7.7) k/uL D-Dimer 3.67 H (<0.60) mg/L FEU Chloride 113 H (98-107) mmol/L Carbon Dioxide 16 L (22-30) mmol/L POC Glucose (mg/dL) (75-99) mg/dL Ferritin 1034.0 H (22.0-322.0) ng/mL AST 65 H (17-59) U/L ALT 122 H (4-49) U/L Alkaline Phosphatase 144 H (38-126) U/L Lactate Dehydrogenase 1180 H (313-618) U/L C-Reactive Protein 6.4 H (<1.0) mg/dL Albumin 3.0 L (3.5-5.0) g/dL 12/04/21 Range/Units 11:36 WBC (3.8-10.6) k/uL Hgb (13.0-17.5) gm/dL Plt Count (150-450) k/uL Neutrophils # (1.3-7.7) k/uL D-Dimer (<0.60) mg/L FEU Chloride (98-107) mmol/L Carbon Dioxide (22-30) mmol/L POC Glucose (mg/dL) 125 H (75-99) mg/dL Ferritin (22.0-322.0) ng/mL AST (17-59) U/L ALT (4-49) U/L Alkaline Phosphatase (38-126) U/L Lactate Dehydrogenase (313-618) U/L C-Reactive Protein (<1.0) mg/dL Albumin (3.5-5.0) g/dL Microbiology - Last 24 Hours (Table) 12/02/21 20:09 Blood Culture - Preliminary Blood No Growth after 24 hours 12/02/21 19:55 Blood Culture - Preliminary Blood No Growth after 24 hours Assessment and Plan Plan: 1 acute COVID 19 related pneumonia. The patient became symptomatically on 11/19/2022. The patient has already received only one shot of messenger RNA Pf izer vaccine approximately a week prior to him being symptomatic. The patient is presenting with worsening shortness of breath and hypoxic respiratory failure. The patient has diffuse bilateral pulmonary infiltrates consistent with COVID [address] angiogram showed no evidence of any pulmonary embolism. The patient's condition is stable, essentially unchanged since yesterday. Oxygenation is also unchanged. Inflammatory markers remain elevated including LDH. 2 acute hypoxic respiratory failure secondary to above currently on 4 L nasal cannula 3 dyspnea and cough secondary to above 4 elevated inflammatory markers secondary to above 5 history of seizure disorders. Patient is well-controlled on medication Plan Admit this patient to the hospital and titrate oxygen flow to maintain a saturation above 90%, currently on 4 L per minute nasal cannula start the patient Decadron 6 mg IV every 24 hours Patient is outside the window for Remdesivir treatment Continue Lovenox 40 mg subcu every 24 hours Monitor inflammatory markers Multivitamins including vitamin C and vitamin D and zinc supplements Resume medications including antiepileptic medication We'll continue to follow make further recommendations based on his progress.
[2021-12-04 17:10] LABS: Glucose,Whole Blood 109 mg/dL (75-99)
[2021-12-04 20:33] LABS: Glucose,Whole Blood 128 mg/dL (75-99)
[2021-12-05 06:10] LABS: Glucose,Whole Blood 95 mg/dL (75-99)
[2021-12-05] MEDS: CHOLECALCIFEROL 25 MCG (1000 IU) TABLET PO SCH (08:17)
[2021-12-05] MEDS: ASCORBIC ACID 500 MG TAB PO SCH (08:17)
[2021-12-05] MEDS: TOPIRAMATE 100 MG TAB PO SCH ×2 (08:17→20:30)
[2021-12-05] MEDS: DEXAMETHASONE SOD PHOSPHATE 10 MG/ML 1 ML VIAL IV SCH (08:17)
[2021-12-05] MEDS: SODIUM BICARBONATE TAB 650 MG TAB PO SCH ×3 (08:17→20:30)
[2021-12-05] MEDS: FAMOTIDINE 20 MG TAB PO SCH (08:17)
[2021-12-05] MEDS: ZINC SULFATE 220 MG CAP PO SCH (08:17)
[2021-12-05] MEDS: ENOXAPARIN 40 MG/0.4 ML SYRINGE SQ SCH (08:17)
[2021-12-05] MEDS: ESLICARBAZEPINE 800 MG PO SCH (08:18)
[2021-12-05 08:30] LABS: ALT 137 U/L (4-49); AST 66 U/L (17-59); African American GFR (CKD) >90 (>60 ml/min/1.73 sqM); Alkaline Phosphatase 127 U/L (38-126); Anion Gap 9 mmol/L; Blood Urea Nitrogen 18 mg/dL (9-20); C Reactive Protein 2.9 mg/dL (<1.0); Calcium 8.5 mg/dL (8.4-10.2); Carbon Dioxide 18 mmol/L (22-30); Chloride 111 mmol/L (98-107); Glucose 90 mg/dL (74-99); LDH 1107 U/L (313-618); Non-African American GFR(CKD) >90 (>60 ml/min/1.73 sqM); Potassium 4.6 mmol/L (3.5-5.1); Sodium 138 mmol/L (137-145); Total Bilirubin 0.4 mg/dL (0.2-1.3); Total Protein 6.5 g/dL (6.3-8.2)
[2021-12-05 08:54] LABS: HGB 12.4 gm/dL (13.0-17.5); MCH 27.9 pg (25.0-35.0); MCHC 31.8 g/dL (31.0-37.0); MCV 87.8 fL (80.0-100.0); Platelet Count 966 k/uL (150-450); RBC 4.44 m/uL (4.30-5.90); WBC 12.5 k/uL (3.8-10.6)
--- NOTE | 2021-12-05 10:13 | P.PN ---
Subjective This is a pleasant 36 years old male with past medical history of seizure He presents with fever after he was diagnosed with [place] it on 11/19, with associated fever and hypoxia since then. Also he noticed that he desaturates with exertion at home. Also he has some dry coughing. Is not fully vaccinated, he took only one shot prior to got infected by about one week. He denies smoking, alcohol or illicit drugs. He has some poor appetite and mild diarrhea. No chest pain or abdominal pain He denies smoking, alcohol or illicit drugs On admission he was hypoxic at 85% on room air. Also had a fever of 101.4. Breathing at a rate of 20 and heart rate of 86. Blood pressure is stable. He had leukocytosis 12.6 and 7.7, hemoglobin 12.4 and platelets elevated 852 with mild lymphopenia. D-dimer 4.2 and 3.1. BMP is unremarkable. Liver enzymes slightly elevated Portcalcitonin and 0.19. Influenza virus is negative, RSV is negative but has positive PCR for coronavirus 12/04/2021 Patient still complaining of from mild dyspnea however he has good appetite and he has mild diarrhea. He is Vitas looks stable and his oxygen requirement still at 5 L/m oxygen saturation of 94%. He is febrile today this morning. D-dimer is stable at 3.6, LDH stable at 1180, C-reactive protein is slightly lower at 6.4. He has some mild leukocytosis at 11.9 most likely secondary to steroid effect. Hemoglobin is stable at 12.5. Platelets elevated at 1025 He remains on dexamethasone and vitamin C, D and zinc. Also he is on Lovenox and Pepcid. 12/05/2021 Patient sitting in chair, mildly tachypneic. He is on 4 L of oxygen with saturation of 91%. No chest pain. Minimal coughing. No abdominal pain. He's has no fever. D-dimer stable at around 3.8. Liver enzymes were mildly elevated. WBC is stable at 12.5, hemoglobin 12.4 and platelet count 966. Inflammatory markers still elevated with LDH 11/23/2006 and 614 2.9. Objective - Vital Signs Vital signs: Vital Signs Temp 98.4 F 12/05/21 08:00 Pulse 107 H 12/05/21 08:00 Resp 20 12/05/21 08:00 BP 120/71 12/05/21 08:00 Pulse Ox 91 L 12/05/21 08:00 Intake & Output 12/04/21 12/05/21 12/05/21 18:59 06:59 18:59 Intake Total 2040 480 125 Output Total 400 750 Balance 2040 80 -625 Intake: Oral 2040 480 125 Output: Urine 400 750 Other: # Voids 4 # Bowel Movements 0 - Exam GENERAL: The patient is alert and oriented x3, not in any acute distress. Well developed, well nourished. HEENT: Pupils are round and equally reacting to light. EOMI. No scleral icterus. No conjunctival pallor. Normocephalic, atraumatic. No pharyngeal erythema. No thyromegaly. CARDIOVASCULAR: S1 and S2 present. No murmurs, rubs, or gallops. -PULMONARY: Chest is clear to auscultation, no wheezing bilateral crackles. ABDOMEN: Soft, nontender, nondistended, normoactive bowel sounds. No palpable organomegaly. MUSCULOSKELETAL: No joint swelling or deformity. EXTREMITIES: No cyanosis, clubbing, or pedal edema. NEUROLOGICAL: Gross neurological examination did not reveal any focal deficits. SKIN: No rashes. no petechiae. - Labs CBC & Chem 7: 12/05/21 07:14 12/05/21 07:14 Labs: Abnormal Lab Results - Last 24 Hours (Table) 12/04/21 12/04/21 12/04/21 Range/Units 07:15 11:36 17:00 WBC (3.8-10.6) k/uL Hgb (13.0-17.5) gm/dL Plt Count (150-450) k/uL D-Dimer (<0.60) mg/L FEU Chloride (98-107) mmol/L Carbon Dioxide (22-30) mmol/L POC Glucose (mg/dL) 125 H 109 H (75-99) mg/dL Ferritin 1034.0 H (22.0-322.0) ng/mL AST (17-59) U/L ALT (4-49) U/L Alkaline Phosphatase (38-126) U/L Lactate Dehydrogenase (313-618) U/L C-Reactive Protein (<1.0) mg/dL Albumin (3.5-5.0) g/dL 12/04/21 12/05/21 12/05/21 Range/Units 20:31 07:14 07:14 WBC 12.5 H (3.8-10.6) k/uL Hgb 12.4 L (13.0-17.5) gm/dL Plt Count 966 H (150-450) k/uL D-Dimer 3.84 H (<0.60) mg/L FEU Chloride (98-107) mmol/L Carbon Dioxide (22-30) mmol/L POC Glucose (mg/dL) 128 H (75-99) mg/dL Ferritin (22.0-322.0) ng/mL AST (17-59) U/L ALT (4-49) U/L Alkaline Phosphatase (38-126) U/L Lactate Dehydrogenase (313-618) U/L C-Reactive Protein (<1.0) mg/dL Albumin (3.5-5.0) g/dL 12/05/21 Range/Units 07:14 WBC (3.8-10.6) k/uL Hgb (13.0-17.5) gm/dL Plt Count (150-450) k/uL D-Dimer (<0.60) mg/L FEU Chloride 111 H (98-107) mmol/L Carbon Dioxide 18 L (22-30) mmol/L POC Glucose (mg/dL) (75-99) mg/dL Ferritin (22.0-322.0) ng/mL AST 66 H (17-59) U/L ALT 137 H (4-49) U/L Alkaline Phosphatase 127 H (38-126) U/L Lactate Dehydrogenase 1107 H (313-618) U/L C-Reactive Protein 2.9 H (<1.0) mg/dL Albumin 3.0 L (3.5-5.0) g/dL Microbiology - Last 24 Hours (Table) 12/02/21 20:09 Blood Culture - Preliminary Blood No Growth after 48 hours 12/02/21 19:55 Blood Culture - Preliminary Blood No Growth after 48 hours Assessment and Plan Assessment: Bilateral Covid pneumonia Acute hypoxic respiratory failure Increased inflammatory markers Mild elevated liver enzymes secondary to obesity infection CTA of the chest: No pulmonary embolism, bilateral extensive multifocal infiltrates Plan: this is a pleasant 36 years old male who presents with bilateral covid pneumonia, and hypoxia Continue with dexamethasone Continue with vitamin C, vitamin D and zinc Pulmonary consult Labs and medication were reviewed.. Continue same treatment. Continue with symptomatic treatment. Resume home medication. Monitor lytes and vitals. DVT and GI prophylaxis. Further recommendations depends on the clinical course of the patient DVT prophylaxis: SubcutaneouS Lovenox GI Prophylaxis: Pepcid Prognosis is guarded
[2021-12-05 10:54] LABS: Band Neutrophils % 3 %; Metamyelocytes # (M) 0.25 k/uL (0); Metamyelocytes % 2 %; Monocytes # (M) 1.13 k/uL (0-1.0); Neutrophils % (M) 72 %; Nucleated Red Blood Cells 0 /100 WBC (0-0); Total Cells Counted 200
[2021-12-05 11:44] LABS: Glucose,Whole Blood 104 mg/dL (75-99)
[2021-12-05] MEDS: ALBUTEROL HFA INHALER INHALATION PRN (12:51)
--- NOTE | 2021-12-05 13:01 | US ---
EXAMINATION TYPE: US venous doppler duplex LE DATE OF EXAM: 12/05/2021 12:35 PM COMPARISON: NONE CLINICAL HISTORY: elevated d-dimer. Covid +. On blood thinners for covid. No leg symptoms. SIDE PERFORMED: Bilateral TECHNIQUE: The lower extremity deep venous system is examined utilizing real time linear array sonog luther with graded compression, doppler sonography and color-flow sonography. VESSELS IMAGED: Common Femoral Vein Deep Femoral Vein Greater Saphenous Vein * Femoral Vein Popliteal Vein Small Saphenous Vein * Proximal Calf Veins (* superficial vessels) Right Leg: Negative for DVT Left Leg: Negative for DVT, rouleaux flow seen Grayscale, color doppler, spectral doppler imaging performed of the deep veins of the bilateral lower extremities. There is normal flow, compressibility, vascular waveforms. IMPRESSION: No ultrasound evidence for acute DVT in either lower extremity.
--- NOTE | 2021-12-05 16:30 | P.PN ---
Subjective Progress Note Date: 12/05/21 36-year-old male coming in for COVID 19 related pneumonia. Origin infection was on 11/19/2022. The patient since then has been having progressive worsening shortness of breath. He had a pulse oximeter at home. While at rest, he was maintaining her pulse ox above 90%. With activity, he was desaturating. He was having body aches and fever and shortness of breath and a dry cough and difficulties with shortness of breath with mobility and activity. No previous history of DVT or pulmonary embolism. He came into the emergency of the chest that showed diffuse bilateral pulmonary infiltrates. The computed tomography scan of the chest showed evidence of bilateral COVID 19 related pneumonia that w as quite extensive. No evidence of any pulmonary embolism. The patient had multiple vertebral wedging involving T2 and T3 and T4 and T5 and T6 and T10. The patient has not received any outpatient treatment. No steroid intake. No use of any monoclonal antibodies. He has taken only one messenger RNA vaccination approximately a week prior to his infection. He has taken the [employer] shots. No altered mentation. No nausea or vomiting or abdominal pain. His blood work is showing a elevated elevated inflammatory markers. His d-dimer is at 3.17. LDH level was 1613. CRP level is at 25.6. Troponin is a been negative. Rest of the electrolytes were essentially adequate and the patient has a component of non-anion gap metabolic acidosis with a serum bicarb of 17. The white cell count was at 7.7 with a hemoglobin of 12.4. His comorbid conditions included seizure disorder which is currently inactive and stable on treatment. On today's evaluation of 12/04/2021, the patient states she was same, his breathing is unlabored. He is getting short of breath with talking and having from accommodation. He remains on 40 to approximately nasal cannula. He was started on Decadron. He was also started on anticoagulation and the patient is currently on Lovenox DVT prophylaxis. The patient's blood work from today shows a d-dimer of 3.6 and the patient also had a LDH level of 1180 with a CPAP level of 6.4. Blood work shows also an ongoing issue with non-anion gap metabolic acidosis probably related to diarrhea which patient was having prior to his hospital admission. BNP is at 19 with a creatinine of 0.98. White cell count is 11.9 with a platelet count of 1025 and hemoglobin of 12.5. No altered mentation. No nausea. No vomiting. Diarrhea. No other significant events overnight. On 12/05/2021, the patient is being seen for a follow-up. The patient remains on 4 L of oxygen by nasal cannula. His breathing is still comfortable. Nevertheless, the inflammatory markers are still elevated. On today's evaluation, the patient continues to have a LDH level of 1107 and a CRP level of 2.9. D-dimer is at 3.84. The patient's electrolytes are normal. The patient's non-anion gap metabolic acidosis improving and the serum bicarbs up to 18. The patient was started on oral bicarbonate. The white cell count is at 12.7 with hemoglobin 12.4 and a platelet count is at 966. The patient remains on Decadron 6 mg IV every 24 hours. The patient remains on anticoagulation with Lovenox 40 subcu every 24 hours. The patient continues to be on oral bicarbonate. He is active and ambulating. No fever. Objective - Vital Signs Vital signs: Vital Signs Temp 98.3 F 12/05/21 12:00 Pulse 104 H 12/05/21 12:00 Resp 18 12/05/21 12:00 BP 120/71 12/05/21 12:00 Pulse Ox 94 L 12/05/21 12:00 Intake & Output 12/04/21 12/05/21 12/05/21 18:59 06:59 18:59 Intake Total 2040 480 125 Output Total 400 750 Balance 2040 80 -625 Intake: Oral 2040 480 125 Output: Urine 400 750 Other: # Voids 4 # Bowel Movements 0 - Exam Gen. appearance the patient is calm and comfortable and currently is on 4 L nasal cannula, breathing is nonlabored. He has occasional dry cough. Head exam was generally normal. There was no scleral icterus or corneal arcus. Mucous membranes were moist. Neck was supple and without jugular venous distension, thyromegaly, or carotid bruits. Carotids were easily palpable bilaterally. There was no adenopathy. Lungs other the medicine the patient's crackles in the mid and lower lung his bilaterally and these are soft crackles Cardiac exam revealed the PMI to be normally situated and sized. The rhythm was regular and no extrasystoles were noted during several minutes of auscultation. The first and second heart sounds were normal and physiologic splitting of the second heart sound was noted. There were no murmurs, rubs, clicks, or gallops. Abdominal exam revealed normal bowel sounds. The abdomen was soft, non-tender, and without masses, organomegaly, or appreciable enlargement of the abdominal aorta. Examination of the extremities revealed easily palpable radial, femoral and pedal pulses. There was no cyanosis, clubbing or edema. Neurologically, the patient is awake and alert and the patient does not have any focal neurological deficit. Cranial nerves are essentially intact. Examination of the skin revealed no evidence of significant rashes, suspicious appearing nevi or other concerning lesions. - Labs CBC & Chem 7: 12/05/21 07:14 12/05/21 07:14 Labs: Abnormal Lab Results - Last 24 Hours (Table) 12/04/21 12/04/21 12/05/21 Range/Units 17:00 20:31 07:14 WBC 12.5 H (3.8-10.6) k/uL Hgb 12.4 L (13.0-17.5) gm/dL Plt Count 966 H (150-450) k/uL Neutrophils # (Manual) 9.30 H (1.3-7.7) k/uL Monocytes # (Manual) 1.13 H (0-1.0) k/uL Metamyelocytes # (Man) 0.25 H (0) k/uL D-Dimer (<0.60) mg/L FEU Chloride (98-107) mmol/L Carbon Dioxide (22-30) mmol/L POC Glucose (mg/dL) 109 H 128 H (75-99) mg/dL Ferritin (22.0-322.0) ng/mL AST (17-59) U/L ALT (4-49) U/L Alkaline Phosphatase (38-126) U/L Lactate Dehydrogenase (313-618) U/L C-Reactive Protein (<1.0) mg/dL Albumin (3.5-5.0) g/dL 12/05/21 12/05/21 12/05/21 Range/Units 07:14 07:14 11:41 WBC (3.8-10.6) k/uL Hgb (13.0-17.5) gm/dL Plt Count (150-450) k/uL Neutrophils # (Manual) (1.3-7.7) k/uL Monocytes # (Manual) (0-1.0) k/uL Metamyelocytes # (Man) (0) k/uL D-Dimer 3.84 H (<0.60) mg/L FEU Chloride 111 H (98-107) mmol/L Carbon Dioxide 18 L (22-30) mmol/L POC Glucose (mg/dL) 104 H (75-99) mg/dL Ferritin 758.0 H (22.0-322.0) ng/mL AST 66 H (17-59) U/L ALT 137 H (4-49) U/L Alkaline Phosphatase 127 H (38-126) U/L Lactate Dehydrogenase 1107 H (313-618) U/L C-Reactive Protein 2.9 H (<1.0) mg/dL Albumin 3.0 L (3.5-5.0) g/dL Microbiology - Last 24 Hours (Table) 12/02/21 20:09 Blood Culture - Preliminary Blood No Growth after 48 hours 12/02/21 19:55 Blood Culture - Preliminary Blood No Growth after 48 hours Assessment and Plan Plan: 1 acute COVID 19 related pneumonia. The patient became symptomatically on 11/19/2022. The patient has already received only one shot of messenger RNA [employer] vaccine approximately a week prior to him being symptomatic. The patient is presenting with worsening shortness of breath and hypoxic respiratory failure. The patient has diffuse bilateral pulmonary infiltrates consistent with COVID [address] angiogram showed no evidence of any pulmonary embolism. The patient's condition is stable, the patient relates that over the past few days and the patient remains on oxygen at 4 L. Inflammatory markers remain elevated. The patient has no new complaints otherwise for now. 2 acute hypoxic respiratory failure, currently on 4 L per minute nasal cannula 3 non-anion gap metabolic acidosis likely secondary to diarrhea and the bicarb is being replaced 4 elevated inflammatory markers secondary to above, inflammatory markers remain elevated including LDH 5 history of seizure disorders. Patient is well-controlled on medication Plan Admit this patient to the hospital and titrate oxygen flow to maintain a saturation above 90%, currently on 4 L per minute nasal cannula start the patient Decadron 6 mg IV every 24 hours Patient is outside the window for Remdesivir treatment Continue Lovenox 40 mg subcu every 24 hours Monitor inflammatory markers, LDH level remains elevated Multivitamins including vitamin C and vitamin D and zinc supplements Continue oral bicarb supplements and the serum bicarb is up to 18 Resume medications including antiepileptic medication We'll continue to follow make further recommendations based on his progress.
[2021-12-05 17:07] LABS: Glucose,Whole Blood 121 mg/dL (75-99)
[2021-12-05 19:59] LABS: Glucose,Whole Blood 101 mg/dL (75-99)
[2021-12-06] MEDS: ALBUTEROL HFA INHALER INHALATION PRN ×4 (07:57→20:08)
[2021-12-06 08:32] LABS: HCT 42.3 % (39.0-53.0); HGB 13.2 gm/dL (13.0-17.5); MCH 27.5 pg (25.0-35.0); MCHC 31.2 g/dL (31.0-37.0); MCV 88.3 fL (80.0-100.0); RBC 4.79 m/uL (4.30-5.90); RDW 13.3 % (11.5-15.5); WBC 12.1 k/uL (3.8-10.6)
[2021-12-06 08:42] LABS: African American GFR (CKD) >90 (>60 ml/min/1.73 sqM); Anion Gap 6 mmol/L; Blood Urea Nitrogen 20 mg/dL (9-20); Calcium 8.9 mg/dL (8.4-10.2); Carbon Dioxide 20 mmol/L (22-30); Chloride 113 mmol/L (98-107); Glucose 91 mg/dL (74-99); Magnesium 2.5 mg/dL (1.6-2.3); Non-African American GFR(CKD) >90 (>60 ml/min/1.73 sqM); Potassium 4.9 mmol/L (3.5-5.1); Sodium 139 mmol/L (137-145)
[2021-12-06] MEDS: ENOXAPARIN 40 MG/0.4 ML SYRINGE SQ SCH (08:53)
[2021-12-06] MEDS: DEXAMETHASONE SOD PHOSPHATE 10 MG/ML 1 ML VIAL IV SCH ×2 (08:54→21:18)
[2021-12-06] MEDS: TOPIRAMATE 100 MG TAB PO SCH ×2 (08:54→21:17)
[2021-12-06] MEDS: ZINC SULFATE 220 MG CAP PO SCH (08:55)
[2021-12-06] MEDS: CHOLECALCIFEROL 25 MCG (1000 IU) TABLET PO SCH (08:55)
[2021-12-06] MEDS: FAMOTIDINE 20 MG TAB PO SCH (08:55)
[2021-12-06] MEDS: ASCORBIC ACID 500 MG TAB PO SCH (08:56)
[2021-12-06] MEDS: SODIUM BICARBONATE TAB 650 MG TAB PO SCH ×3 (08:56→21:18)
[2021-12-06] MEDS: ESLICARBAZEPINE 800 MG PO SCH (08:57)
[2021-12-06 08:59] LABS: C Reactive Protein 2.2 mg/dL (<1.0)
[2021-12-06 11:55] LABS: Glucose,Whole Blood 111 mg/dL (75-99)
--- NOTE | 2021-12-06 11:57 | P.PN ---
Subjective This is a pleasant 36 years old male with past medical history of seizure He presents with fever after he was diagnosed with [place] it on 11/19, with associated fever and hypoxia since then. Also he noticed that he desaturates with exertion at home. Also he has some dry coughing. Is not fully vaccinated, he took only one shot prior to got infected by about one week. He denies smoking, alcohol or illicit drugs. He has some poor appetite and mild diarrhea. No chest pain or abdominal pain He denies smoking, alcohol or illicit drugs On admission he was hypoxic at 85% on room air. Also had a fever of 101.4. Breathing at a rate of 20 and heart rate of 86. Blood pressure is stable. He had leukocytosis 12.6 and 7.7, hemoglobin 12.4 and platelets elevated 852 with mild lymphopenia. D-dimer 4.2 and 3.1. BMP is unremarkable. Liver enzymes slightly elevated Portcalcitonin and 0.19. Influenza virus is negative, RSV is negative but has positive PCR for coronavirus 12/04/2021 Patient still complaining of from mild dyspnea however he has good appetite and he has mild diarrhea. He is Vitas looks stable and his oxygen requirement still at 5 L/m oxygen saturation of 94%. He is febrile today this morning. D-dimer is stable at 3.6, LDH stable at 1180, C-reactive protein is slightly lower at 6.4. He has some mild leukocytosis at 11.9 most likely secondary to steroid effect. Hemoglobin is stable at 12.5. Platelets elevated at 1025 He remains on dexamethasone and vitamin C, D and zinc. Also he is on Lovenox and Pepcid. 12/05/2021 Patient sitting in chair, mildly tachypneic. He is on 4 L of oxygen with saturation of 91%. No chest pain. Minimal coughing. No abdominal pain. He's has no fever. D-dimer stable at around 3.8. Liver enzymes were mildly elevated. WBC is stable at 12.5, hemoglobin 12.4 and platelet count 966. Inflammatory markers still elevated with LDH 11/23/2006 and 614 2.9. 12/06/2021 Patient today awake alert, he looks comfortable sitting in the chair however his oxygen requirements went up to 12 L minute. He had no more fever but his labs showing stable WBC 12.1, hemoglobin normal at 13.2 blood platelets is elevated at 11:30 CRP is slightly less at 2.2. D-dimer is stable at 3.8. Repeat chest x-ray today showing same findings of bilateral patchy infiltrates, however final report is pending Portcalcitonin is trending down at 0.10. Continue on vitamin C, D and zinc. Dexamethasone dose doubled to 6 mg twice daily. Continue with Lovenox and Pepcid. Objective - Vital Signs Vital signs: Vital Signs Temp 98.6 F 12/06/21 08:00 Pulse 122 H 12/06/21 08:00 Resp 22 12/06/21 08:00 BP 128/67 12/06/21 08:00 Pulse Ox 91 L 12/06/21 10:47 Intake & Output 12/05/21 12/06/21 12/06/21 18:59 06:59 18:59 Intake Total 525 480 240 Output Total 750 400 Balance -225 80 240 Intake: Oral 525 480 240 Output: Urine 750 400 Other: # Bowel Movements 0 - Exam GENERAL: The patient is alert and oriented x3, not in any acute distress. Well developed, well nourished. HEENT: Pupils are round and equally reacting to light. EOMI. No scleral icterus. No conjunctival pallor. Normocephalic, atraumatic. No pharyngeal erythema. No thyromegaly. CARDIOVASCULAR: S1 and S2 present. No murmurs, rubs, or gallops. -PULMONARY: Chest is clear to auscultation, no wheezing bilateral crackles. ABDOMEN: Soft, nontender, nondistended, normoactive bowel sounds. No palpable organomegaly. MUSCULOSKELETAL: No joint swelling or deformity. EXTREMITIES: No cyanosis, clubbing, or pedal edema. NEUROLOGICAL: Gross neurological examination did not reveal any focal deficits. SKIN: No rashes. no petechiae. - Labs CBC & Chem 7: 12/06/21 07:55 12/06/21 07:55 Labs: Abnormal Lab Results - Last 24 Hours (Table) 12/05/21 12/05/21 12/06/21 Range/Units 16:49 19:56 07:55 WBC (3.8-10.6) k/uL Plt Count (150-450) k/uL D-Dimer (<0.60) mg/L FEU Chloride (98-107) mmol/L Carbon Dioxide (22-30) mmol/L POC Glucose (mg/dL) 121 H 101 H (75-99) mg/dL Magnesium (1.6-2.3) mg/dL C-Reactive Protein (<1.0) mg/dL Procalcitonin 0.10 H (0.02-0.09) ng/mL 12/06/21 12/06/21 12/06/21 Range/Units 07:55 07:55 07:55 WBC 12.1 H (3.8-10.6) k/uL Plt Count 1130 H* (150-450) k/uL D-Dimer 3.81 H (<0.60) mg/L FEU Chloride 113 H (98-107) mmol/L Carbon Dioxide 20 L (22-30) mmol/L POC Glucose (mg/dL) (75-99) mg/dL Magnesium 2.5 H (1.6-2.3) mg/dL C-Reactive Protein 2.2 H (<1.0) mg/dL Procalcitonin (0.02-0.09) ng/mL 12/06/21 Range/Units 11:45 WBC (3.8-10.6) k/uL Plt Count (150-450) k/uL D-Dimer (<0.60) mg/L FEU Chloride (98-107) mmol/L Carbon Dioxide (22-30) mmol/L POC Glucose (mg/dL) 111 H (75-99) mg/dL Magnesium (1.6-2.3) mg/dL C-Reactive Protein (<1.0) mg/dL Procalcitonin (0.02-0.09) ng/mL Microbiology - Last 24 Hours (Table) 12/02/21 20:09 Blood Culture - Preliminary Blood No Growth after 72 hours 12/02/21 19:55 Blood Culture - Preliminary Blood No Growth after 72 hours Assessment and Plan Assessment: Bilateral Covid pneumonia Acute hypoxic respiratory failure Increased inflammatory markers Mild elevated liver enzymes secondary to obesity infection CTA of the chest: No pulmonary embolism, bilateral extensive multifocal inf iltrates Plan: this is a pleasant 36 years old male who presents with bilateral covid pneumonia, and hypoxia Continue with dexamethasone Continue with vitamin C, vitamin D and zinc Pulmonary consult Labs and medication were reviewed.. Continue same treatment. Continue with symptomatic treatment. Resume home medication. Monitor lytes and vitals. DVT and GI prophylaxis. Further recommendations depends on the clinical course of the patient DVT prophylaxis: SubcutaneouS Lovenox GI Prophylaxis: Pepcid Prognosis is guarded
[2021-12-06 12:00] LABS: Platelet Count 1130 k/uL (150-450)
[2021-12-06 12:15] LABS: Eosinophils # (M) 0.12 k/uL (0-0.7); Lymphocytes # (M) 1.82 k/uL (1.0-4.8); Metamyelocytes # (M) 0.36 k/uL (0); Metamyelocytes % 3 %; Monocytes # (M) 1.09 k/uL (0-1.0); Myelocytes # (M) 0.73 k/uL (0); Myelocytes % 6 %; Neutrophils # (M) 8.11 k/uL (1.3-7.7); Neutrophils % (M) 67 %; Nucleated Red Blood Cells 0 /100 WBC (0-0); Promyelocytes # (M) 0.12 k/uL (0); Promyelocytes % 1 %; Total Cells Counted 200
--- NOTE | 2021-12-06 13:37 | CT ---
EXAMINATION TYPE: CT chest angio for PE DATE OF EXAM: 12/06/2021 COMPARISON: Radiograph 12/06/2021 HISTORY: 36-year-old male shortness of breath, elevated d-dimer Covid pneumonia with resp. failure TECHNIQUE: Contiguous axial scanning of the chest performed with IV Contrast, patient injected with 1 00 mL of Isovue 370. Coronal/sagittal MIP reconstructions performed. CT DLP: 408.7 mGycm Automated exposure control for dose reduction was used. FINDINGS: Heart normal size without pericardial effusion. Aorta normal caliber with conventional arch vessel branching anatomy. Scattered prominent hilar lymph nodes measuring up to 1.1 cm likely reactive. Some prominent AP windo w lymph nodes measuring up to 9 mm. No large central pulmonary embolus. The upper lungs are suboptimally opacified for assessment of the upper lobe, segmental, or more distal branches. No definite pulmonary embolus in the mid and lower laina ngs allowing for the extensive motion artifact. There is bilateral patchy and confluent groundglass consolidation compatible with pneumonia. No pleur al effusion. Visualized upper abdomen shows no gross abnormal body. Hilar splenule. Bones: A few scattered small superior and plate Schmorl's nodes. No osseous destructive process. IMPRESSION: 1. BREATHING MOTION. SUBOPTIMAL OPACIFICATION IN THE UPPER LUNGS. NO LARGE CENTRAL PULMONARY EMBOLUS. NO DEFINITE PULMONARY EMBOLUS IN THE MID AND LOWER LUNGS ALLOWING FOR THE EXTENSIVE BREATHING MOTION . LOBAR, SEGMENTAL, AND MORE DISTAL BRANCHES IN THE UPPER LUNGS ARE NONDIAGNOSTIC. 2. BILATERAL PATCHY AND CONFLUENT COVID PNEUMONIA. 3. SOME REACTIVE HILAR LYMPH NODES MEASURING UP TO 1.1 CM.
--- NOTE | 2021-12-06 13:49 | P.PN ---
Subjective Progress Note Date: 12/06/21 Principal diagnosis: Dyspnea, hypoxia On 12/06/2021 patient seen in follow-up on medical surgical floor. Today he is noted to be desaturating on his previous amount of oxygen 3 L, and he is only satting 84%, FiO2 was then increased to 4 L and then 5 L and patient required to be placed on high flow nasal cannula and he is currently at 12 L and his pulse ox is marginal and 91%. However his breathing is nonlabored, his lung sounds reveal only minimal crackles, no rhonchi or wheezing, no complaints of chest discomfort, today he sitting up in the chair, his been walking to the bathroom, he does desaturate to 80% on previously 4 L of oxygen, but tolerates activity fairly well. His lower extremity Dopplers were negative for DVT, his CTA chest on admission showed no evidence of pulmonary embolism, he remains on Decadron 6 mg daily, and he is on prophylactic Lovenox. There is really hoping to go home today however in view of his increasing oxygen needs, his discharge will be held. He is tolerating oral intake, no nausea vomiting or diarrhea. No abdominal pain. Objective - Vital Signs Vital signs: Vital Signs Temp 97.7 F 12/06/21 12:00 Pulse 118 H 12/06/21 12:00 Resp 22 12/06/21 12:00 BP 129/78 12/06/21 12:00 Pulse Ox 96 12/06/21 12:00 Intake & Output 12/05/21 12/06/21 12/06/21 18:59 06:59 18:59 Intake Total 525 480 240 Output Total 750 400 Balance -225 80 240 Weight 103.6 kg Intake: Oral 525 480 240 Output: Urine 750 400 Other: # Bowel Movements 0 - Exam GENERAL EXAM: Alert, pleasant, 36-year-old white male on 4 L of oxygen pulse ox of 84%, and he was switched to high flow nasal cannula at 12 L, and his pulse ox is currently 91-92%. comfortable in no apparent distress. HEAD: Normocephalic/atraumatic. EYES: Normal reaction of pupils, equal size. Conjunctiva pink, sclera white. NOSE: Clear with pink turbinates. THROAT: No erythema or exudates. NECK: No masses, no JVD, no thyroid enlargement, no adenopathy. CHEST: No chest wall deformity. Symmetrical expansion. LUNGS: Equal air entry with min crackles, but no wheeze, rhonchi or dullness. CVS: Regular rate and rhythm, normal S1 and S2, no gallops, no murmurs, no rubs ABDOMEN: Soft, nontender. No hepatosplenomegaly, normal bowel sounds, no guarding or rigidity. EXTREMITIES: No clubbing, no edema, no cyanosis, 2+ pulses and upper and lower extremities. MUSCULOSKELETAL: Muscle strength and tone normal. SPINE: No scoliosis or deformity SKIN: No rashes CENTRAL NERVOUS SYSTEM: Alert and oriented -3. No focal deficits, tone is normal in all 4 extremities. PSYCHIATRIC: Alert and oriented -3. Appropriate affect. Intact judgment and insight. - Labs CBC & Chem 7: 12/06/21 07:55 12/06/21 07:55 Labs: Abnormal Lab Results - Last 24 Hours (Table) 12/05/21 12/05/21 12/06/21 Range/Units 16:49 19:56 07:55 WBC (3.8-10.6) k/uL Plt Count (150-450) k/uL Neutrophils # (Manual) (1.3-7.7) k/uL Monocytes # (Manual) (0-1.0) k/uL Metamyelocytes # (Man) (0) k/uL Myelocytes # (Manual) (0) k/uL Promyelocytes # (Man) (0) k/uL D-Dimer (<0.60) mg/L FEU Chloride (98-107) mmol/L Carbon Dioxide (22-30) mmol/L POC Glucose (mg/dL) 121 H 101 H (75-99) mg/dL Magnesium (1.6-2.3) mg/dL C-Reactive Protein (<1.0) mg/dL Procalcitonin 0.10 H (0.02-0.09) ng/mL 12/06/21 12/06/21 12/06/21 Range/Units 07:55 07:55 07:55 WBC 12.1 H (3.8-10.6) k/uL Plt Count 1130 H* (150-450) k/uL Neutrophils # (Manual) 8.11 H (1.3-7.7) k/uL Monocytes # (Manual) 1.09 H (0-1.0) k/uL Metamyelocytes # (Man) 0.36 H (0) k/uL Myelocytes # (Manual) 0.73 H (0) k/uL Promyelocytes # (Man) 0.12 H (0) k/uL D-Dimer 3.81 H (<0.60) mg/L FEU Chloride 113 H (98-107) mmol/L Carbon Dioxide 20 L (22-30) mmol/L POC Glucose (mg/dL) (75-99) mg/dL Magnesium 2.5 H (1.6-2.3) mg/dL C-Reactive Protein 2.2 H (<1.0) mg/dL Procalcitonin (0.02-0.09) ng/mL 12/06/21 Range/Units 11:45 WBC (3.8-10.6) k/uL Plt Count (150-450) k/uL Neutrophils # (Manual) (1.3-7.7) k/uL Monocytes # (Manual) (0-1.0) k/uL Metamyelocytes # (Man) (0) k/uL Myelocytes # (Manual) (0) k/uL Promyelocytes # (Man) (0) k/uL D-Dimer (<0.60) mg/L FEU Chloride (98-107) mmol/L Carbon Dioxide (22-30) mmol/L POC Glucose (mg/dL) 111 H (75-99) mg/dL Magnesium (1.6-2.3) mg/dL C-Reactive Protein (<1.0) mg/dL Procalcitonin (0.02-0.09) ng/mL Microbiology - Last 24 Hours (Table) 12/02/21 20:09 Blood Culture - Preliminary Blood No Growth after 72 hours 12/02/21 19:55 Blood Culture - Preliminary Blood No Growth after 72 hours Assessment and Plan Plan: Assessment: #1. Acute hypoxic respiratory failure related to acute 19 related pneumonia, patient became symptomatic on 11/19/2022, presented to the emergency department on 12/02/2021. He is status post 1 dose of Pf[employer] vaccine approximately a week prior to coming to the emergency department. Patient was outside the window for Remdesivir. Patient's oxygen needs have increased today on 12/06/2021 when pat ient is currently up to 12 L per high flow nasal cannula #2. Elevated d-dimer, with initial CTA chest negative for PE, and lower extremity Dopplers were negative for PE, however in view of rising oxygen needs and persistently elevated d-dimer we'll proceed with a repeat CT angiogram of the chest today #3. Non-anion gap metabolic acidosis secondary to diarrhea, and patient is receiving oral bicarbonate 650 mg 3 times a day #4. Elevated inflammatory markers related to the acute COVID-19 pneumonia #5. History of seizure disorder #6. Thrombocytosis Plan: Obtain CT angiogram of the chest to rule out possibility of PE Continue current dose Decadron Continue current dose Lovenox Lower extremity Dopplers were negative for DVT, initial CT chest was negative for PE Oxygenation needs have increased in the last 24 hours Hold discharge Continue to follow his clinical course and make further recommendations If oxygenation continues to worsen will consider Baricitinib I performed a history & physical examination of the patient and discussed their management with my nurse practitioner, Judith Bruce. I reviewed the nurse practitioner's note and agree with the documented findings and plan of care. Lung sounds are positive for dim breath sounds throughout the lung cheng. The findings and the impression was discussed with the patient. I attest to the documentation by the nurse practitioner. Time with Patient: Less than 30
--- NOTE | 2021-12-06 15:37 | XR ---
EXAMINATION TYPE: XR chest 1V DATE OF EXAM: 12/06/2021 COMPARISON: 12/02/2021 INDICATION: Short of breath TECHNIQUE: Single frontal view of the chest is obtained. FINDINGS: The heart size is normal. The pulmonary vasculature is normal. Patchy bilateral lung infiltrates are present. Findings appear similar to comparison. IMPRESSION: 1. Patchy bilateral lung infiltrates can be compatible with atypical pneumonia.
[2021-12-06 16:34] LABS: Glucose,Whole Blood 119 mg/dL (75-99)
[2021-12-06 16:34] LABS: Albumin 3.7 g/dL (3.5-5.0); Bilirubin, Delta 0.3 mg/dL (0.0-0.2); Bilirubin,Unconjugated 0.1 mg/dL (0.0-1.1); Total Bilirubin 0.4 mg/dL (0.2-1.3); Total Protein 7.5 g/dL (6.3-8.2)
[2021-12-06 17:06] LABS: INR 1.1 (<1.2); Prothrombin Time 11.4 sec (9.0-12.0)
--- NOTE | 2021-12-06 20:10 | P.CONS ---
History of Present Illness - Reason for Consult Consult date: 12/06/21 Thrombocytosis Requesting physician: Jared E Sheet - History of Present Illness Naeem is a 36 year old admitted with acute respiratory failure secondary to COVID pneumonia. His platelet count >1million therefore we have been asked to further evaluate. He has no prior history of thrombolic event. He has no prior admissions to trend baseline platelets. His ferritin is >700 therefore not reactive to iron deficiency. He is alert and oriented during visit today. We discussed likely reactive picture to inflammation of covid but will need to wait recovery and re-check as outpatient. In the interim continuing on lovenox prophylaxic and aspirin. Review of Systems All systems: negative Constitutional: Reports as per HPI Past Medical History Past Medical History: Seizure Disorder Additional Past Medical History / Comment(s): last seizure aprox 1 yr ago. History of Any Multi-Drug Resistant Organisms: None Reported Past Surgical History: No Surgical Hx Reported Past Psychological History: No Psychological Hx Reported Smoking Status: Never smoker Past Alcohol Use History: None Reported Past Drug Use History: None Reported Medications and Allergies Home Medications Medication Instructions Recorded Confirmed Type Amoxicillin/Potassium Clav 1 tab PO BID 12/02/21 12/02/21 History [Augmentin 875-125 Tablet] Eslicarbazepine Acetate [Aptiom] 800 mg PO DAILY 12/02/21 12/02/21 History Topiramate 200 mg PO BID 12/02/21 12/02/21 History Allergies Allergy/AdvReac Type Severity Reaction Status Date / Time No Known Allergies Allergy Verified 12/02/21 20:54 Physical Exam Vitals: Vital Signs Temp Pulse Resp BP Pulse Ox 12/06/21 12:00 97.7 F 118 H 22 129/78 96 12/06/21 10:47 91 L 12/06/21 08:00 98.6 F 122 H 22 128/67 89 L 12/06/21 04:00 76 20 136/82 92 L 12/06/21 01:05 80 18 12/06/21 00:00 98.5 F 86 18 141/90 93 L 12/05/21 20:00 98.4 F 90 20 130/86 93 L 12/05/21 16:00 97.8 F 93 18 131/85 95 Intake and Output 12/05/21 12/06/21 12/06/21 22:59 06:59 14:59 Intake Total 640 240 240 Output Total 400 Balance 640 -160 240 Intake: Oral 640 240 240 Output: Urine 400 Other: Weight 103.6 kg - Constitutional General appearance: cooperative, mild distress - EENT Eyes: EOMI, PERRLA ENT: NA/AT - Neck Neck: normal ROM - Respiratory Respiratory: bilateral: rhonchi (increasing effort) - Cardiovascular Rhythm: regularly irregular - Gastrointestinal General gastrointestinal: soft - Integumentary Integumentary: pale - Neurologic Neurologic: CNII-XII intact - Musculoskeletal Musculoskeletal: gait normal, strength equal bilaterally - Psychiatric Psychiatric: A&O x's 3, appropriate affect, intact judgment & insight Results CBC & Chem 7: 12/06/21 07:55 12/06/21 07:55 Labs: Abnormal Lab Results - Last 24 Hours (Table) 12/05/21 12/05/21 12/06/21 Range/Units 16:49 19:56 07:55 WBC (3.8-10.6) k/uL D-Dimer (<0.60) mg/L FEU Chloride (98-107) mmol/L Carbon Dioxide (22-30) mmol/L POC Glucose (mg/dL) 121 H 101 H (75-99) mg/dL Magnesium (1.6-2.3) mg/dL C-Reactive Protein (<1.0) mg/dL Procalcitonin 0.10 H (0.02-0.09) ng/mL 12/06/21 12/06/21 12/06/21 Range/Units 07:55 07:55 07:55 WBC 12.1 H (3.8-10.6) k/uL D-Dimer 3.81 H (<0.60) mg/L FEU Chloride 113 H (98-107) mmol/L Carbon Dioxide 20 L (22-30) mmol/L POC Glucose (mg/dL) (75-99) mg/dL Magnesium 2.5 H (1.6-2.3) mg/dL C-Reactive Protein 2.2 H (<1.0) mg/dL Procalcitonin (0.02-0.09) ng/mL 12/06/21 Range/Units 11:45 WBC (3.8-10.6) k/uL D-Dimer (<0.60) mg/L FEU Chloride (98-107) mmol/L Carbon Dioxide (22-30) mmol/L POC Glucose (mg/dL) 111 H (75-99) mg/dL Magnesium (1.6-2.3) mg/dL C-Reactive Protein (<1.0) mg/dL Procalcitonin (0.02-0.09) ng/mL Microbiology - Last 24 Hours (Table) 12/02/21 20:09 Blood Culture - Preliminary Blood No Growth after 72 hours 12/02/21 19:55 Blood Culture - Preliminary Blood No Growth after 72 hours Assessment and Plan (1) Thrombocytosis Current Visit: Yes Status: Acute Code(s): D75.839 - THROMBOCYTOSIS, UNSPECIFIED SNOMED Code(s): 2377524 (2) Acute respiratory failure due to COVID-19 Current Visit: Yes Status: Acute Code(s): U07.1 - COVID-19; J96.00 - ACUTE RESPIRATORY FAILURE, UNSP W HYPOXIA OR HYPERCAPNIA SNOMED Code(s): 280777532 (3) Hypoxia Current Visit: Yes Status: Acute Code(s): R09.02 - HYPOXEMIA SNOMED Code(s): 043549073 (4) Pneumonia due to COVID-19 virus Current Visit: Yes Status: Acute Code(s): U07.1 - COVID-19; J12.82 - PNEUMONIA DUE TO CORONAVIRUS DISEASE 2019 SNOMED Code(s): 210781999632992722 Plan: CTA was negative for PE patient continues on prophylaxic anticoagulation Aspirin and Prophylaxis Lovenox to continue Plan to follow-up in office in 4 weeks after recovery to ensure recovery of platelet count Physician Attest: I have completed the full history and physical and agree with above dictation, dictated as a ascribe
[2021-12-06 20:42] LABS: Glucose,Whole Blood 97 mg/dL (75-99)
[2021-12-07 06:03] LABS: Glucose,Whole Blood 113 mg/dL (75-99)
[2021-12-07 08:09] VITALS: RESP 20; TEMP 97.4
[2021-12-07 09:23] LABS: Basophils # (A) 0.1 k/uL (0-0.2); Basophils % (A) 1 %; Eosinophils % (A) 0 %; HCT 44.1 % (39.0-53.0); HGB 13.9 gm/dL (13.0-17.5); Hypochromasia Slight; Lymphocytes # (A) 1.6 k/uL (1.0-4.8); Lymphocytes % (A) 11 %; MCH 28.2 pg (25.0-35.0); MCHC 31.5 g/dL (31.0-37.0); MCV 89.5 fL (80.0-100.0); Mean Platelet Volume 7.1; Monocytes # (A) 0.4 k/uL (0-1.0); Monocytes % (A) 3 %; Neutrophils # (A) 12.1 k/uL (1.3-7.7); Neutrophils % (A) 84 %; RBC 4.92 m/uL (4.30-5.90); RDW 13.9 % (11.5-15.5); WBC 14.4 k/uL (3.8-10.6)
[2021-12-07 09:25] LABS: ALT 200 U/L (4-49); AST 69 U/L (17-59); African American GFR (CKD) >90 (>60 ml/min/1.73 sqM); Albumin 3.6 g/dL (3.5-5.0); Alkaline Phosphatase 139 U/L (38-126); Anion Gap 9 mmol/L; Blood Urea Nitrogen 20 mg/dL (9-20); Calcium 9.3 mg/dL (8.4-10.2); Carbon Dioxide 21 mmol/L (22-30); Chloride 110 mmol/L (98-107); Glucose 153 mg/dL (74-99); Non-African American GFR(CKD) >90 (>60 ml/min/1.73 sqM); Potassium 4.8 mmol/L (3.5-5.1); Sodium 140 mmol/L (137-145); Total Bilirubin 0.5 mg/dL (0.2-1.3); Total Protein 7.5 g/dL (6.3-8.2)
[2021-12-07] MEDS: TOPIRAMATE 100 MG TAB PO SCH (09:39)
[2021-12-07] MEDS: CHOLECALCIFEROL 25 MCG (1000 IU) TABLET PO SCH (09:39)
[2021-12-07] MEDS: ENOXAPARIN 40 MG/0.4 ML SYRINGE SQ SCH (09:39)
[2021-12-07] MEDS: ZINC SULFATE 220 MG CAP PO SCH (09:39)
[2021-12-07] MEDS: SODIUM BICARBONATE TAB 650 MG TAB PO SCH (09:40)
[2021-12-07] MEDS: DEXAMETHASONE SOD PHOSPHATE 10 MG/ML 1 ML VIAL IV SCH (09:40)
[2021-12-07] MEDS: ASCORBIC ACID 500 MG TAB PO SCH (09:40)
[2021-12-07] MEDS: FAMOTIDINE 20 MG TAB PO SCH (09:40)
[2021-12-07] MEDS: ESLICARBAZEPINE 800 MG PO SCH (09:40)
[2021-12-07 10:00] LABS: Platelet Count 1207 k/uL (150-450)
[2021-12-07] MEDS ORDERED: ALPRAZolam 0.5 MG TAB PO PRN (10:04)
[2021-12-07 11:39] LABS: Glucose,Whole Blood 95 mg/dL (75-99)
[2021-12-07] MEDS ORDERED: ASPIRIN 81 MG PO SCH (13:00)
[2021-12-07 13:02] VITALS: BP 121/81; PULSE 106
--- NOTE | 2021-12-07 13:53 | P.PN ---
Subjective Progress Note Date: 12/07/21 36-year-old male coming in for COVID 19 related pneumonia. Origin infection was on 11/19/2022. The patient since then has been having progressive worsening shortness of breath. He had a pulse oximeter at home. While at rest, he was maintaining her pulse ox above 90%. With activity, he was desaturating. He was having body aches and fever and shortness of breath and a dry cough and difficulties with shortness of breath with mobility and activity. No previous history of DVT or pulmonary embolism. He came into the emergency of the chest that showed diffuse bilateral pulmonary infiltrates. The computed tomography scan of the chest showed evidence of bilateral COVID 19 related pneumonia that w as quite extensive. No evidence of any pulmonary embolism. The patient had multiple vertebral wedging involving T2 and T3 and T4 and T5 and T6 and T10. The patient has not received any outpatient treatment. No steroid intake. No use of any monoclonal antibodies. He has taken only one messenger RNA vaccination approximately a week prior to his infection. He has taken the Wire shots. No altered mentation. No nausea or vomiting or abdominal pain. His blood work is showing a elevated elevated inflammatory markers. His d-dimer is at 3.17. LDH level was 1613. CRP level is at 25.6. Troponin is a been negative. Rest of the electrolytes were essentially adequate and the patient has a component of non-anion gap metabolic acidosis with a serum bicarb of 17. The white cell count was at 7.7 with a hemoglobin of 12.4. His comorbid conditions included seizure disorder which is currently inactive and stable on treatment. On today's evaluation of 12/04/2021, the patient states she was same, his breathing is unlabored. He is getting short of breath with talking and having from accommodation. He remains on 40 to approximately nasal cannula. He was started on Decadron. He was also started on anticoagulation and the patient is currently on Lovenox DVT prophylaxis. The patient's blood work from today shows a d-dimer of 3.6 and the patient also had a LDH level of 1180 with a CPAP level of 6.4. Blood work shows also an ongoing issue with non-anion gap metabolic acidosis probably related to diarrhea which patient was having prior to his hospital admission. BNP is at 19 with a creatinine of 0.98. White cell count is 11.9 with a platelet count of 1025 and hemoglobin of 12.5. No altered mentation. No nausea. No vomiting. Diarrhea. No other significant events overnight. On 12/05/2021, the patient is being seen for a follow-up. The patient remains on 4 L of oxygen by nasal cannula. His breathing is still comfortable. Nevertheless, the inflammatory markers are still elevated. On today's evaluation, the patient continues to have a LDH level of 1107 and a CRP level of 2.9. D-dimer is at 3.84. The patient's electrolytes are normal. The patient's non-anion gap metabolic acidosis improving and the serum bicarbs up to 18. The patient was started on oral bicarbonate. The white cell count is at 12.7 with hemoglobin 12.4 and a platelet count is at 966. The patient remains on Decadron 6 mg IV every 24 hours. The patient remains on anticoagulation with Lovenox 40 subcu every 24 hours. The patient continues to be on oral bicarbonate. He is active and ambulating. No fever. On 12/06/2021 patient seen in follow-up on medical surgical floor. Today he is noted to be desaturating on his previous amount of oxygen 3 L, and he is only satting 84%, FiO2 was then increased to 4 L and then 5 L and patient required to be placed on high flow nasal cannula and he is currently at 12 L and his pulse ox is marginal and 91%. However his breathing is nonlabored, his lung sounds reveal only minimal crackles, no rhonchi or wheezing, no complaints of chest discomfort, today he sitting up in the chair, his been walking to the bathroom, he does desaturate to 80% on previously 4 L of oxygen, but tolerates activity fairly well. His lower extremity Dopplers were negative for DVT, his CTA chest on admission showed no evidence of pulmonary embolism, he remains on Decadron 6 mg daily, and he is on prophylactic Lovenox. There is really hoping to go home today however in view of his increasing oxygen needs, his discharge will be held. He is tolerating oral intake, no nausea vomiting or diarrhea. No abdominal pain. 12/07/2021, the patient is being seen for a follow-up. The patient remains on oxygen 5 L per minute nasal cannula. There was some concerns of respiratory insufficiency and further decompensation. The patient continued to have elevate d inflammatory markers including LDH of 1194 on yesterday's evaluation with a CRP of 2.2. D-dimer was mildly elevated at 3.8. Based on that, the patient was given a CT of the chest. There was no evidence of pulmonary embolism. Nevertheless, the patient continued to have diffuse bilateral pulmonary masses consistent with community related pneumonia. He is able to sit up on a chair. He is requesting to go home. He is very much convinced that he does better at home. He is adamant that he wants to get discharged today. Based on all this, and based on his mental status which I considered to be competent, I think we cannot hold the patient's discharge at this point. If he was to go home today, he needs to go home on oxygen and steroids. Nevertheless, I advised him to stay in hospital knowing that his sister says overall is still borderline. He may potentially decompensated later stage. The patient insisted on being discharged today. Blood work shows a sodium of 140 potassium 4.8 post 110 bicarb is 21. BUN is 20 with a creatinine of 0.9. White cell count is at 14.4. Platelet count is elevated at 1207. Objective - Vital Signs Vital signs: Vital Signs Temp 97.4 F L 12/07/21 08:00 Pulse 106 H 12/07/21 12:00 Resp 20 12/07/21 12:00 BP 121/81 12/07/21 12:00 Pulse Ox 96 12/07/21 12:00 Intake & Output 12/06/21 12/07/21 12/07/21 18:59 06:59 18:59 Intake Total 360 720 Balance 360 720 Weight 103.1 kg Intake: Oral 360 720 Other: # Voids 2 1 1 - Exam Gen. appearance the patient is calm and comfortable and currently is on 5 L nasal cannula, breathing is nonlabored. He has occasional dry cough. Head exam was generally normal. There was no scleral icterus or corneal arcus. Mucous membranes were moist. Neck was supple and without jugular venous distension, thyromegaly, or carotid bruits. Carotids were easily palpable bilaterally. There was no adenopathy. Lungs other the medicine the patient's crackles in the mid and lower lung his bilaterally and these are soft crackles Cardiac exam revealed the PMI to be normally situated and sized. The rhythm was regular and no extrasystoles were noted during several minutes of auscultation. The first and second heart sounds were normal and physiologic splitting of the s econd heart sound was noted. There were no murmurs, rubs, clicks, or gallops. Abdominal exam revealed normal bowel sounds. The abdomen was soft, non-tender, and without masses, organomegaly, or appreciable enlargement of the abdominal aorta. Examination of the extremities revealed easily palpable radial, femoral and pedal pulses. There was no cyanosis, clubbing or edema. Neurologically, the patient is awake and alert and the patient does not have any focal neurological deficit. Cranial nerves are essentially intact. Examination of the skin revealed no evidence of significant rashes, suspicious appearing nevi or other concerning lesions. - Labs CBC & Chem 7: 12/07/21 08:33 12/07/21 08:33 Labs: Abnormal Lab Results - Last 24 Hours (Table) 12/06/21 12/06/21 12/06/21 Range/Units 16:10 16:10 16:32 WBC (3.8-10.6) k/uL Plt Count (150-450) k/uL Neutrophils # (1.3-7.7) k/uL Fibrinogen 580 H (200-500) mg/dL Chloride (98-107) mmol/L Carbon Dioxide (22-30) mmol/L Glucose (74-99) mg/dL POC Glucose (mg/dL) 119 H (75-99) mg/dL Delta Bilirubin 0.3 H (0.0-0.2) mg/dL AST 93 H (17-59) U/L ALT 211 H (4-49) U/L Alkaline Phosphatase 151 H (38-126) U/L Lactate Dehydrogenase 1194 H (313-618) U/L 12/07/21 12/07/21 12/07/21 Range/Units 06:02 08:33 08:33 WBC 14.4 H (3.8-10.6) k/uL Plt Count 1207 H* (150-450) k/uL Neutrophils # 12.1 H (1.3-7.7) k/uL Fibrinogen (200-500) mg/dL Chloride 110 H (98-107) mmol/L Carbon Dioxide 21 L (22-30) mmol/L Glucose 153 H (74-99) mg/dL POC Glucose (mg/dL) 113 H (75-99) mg/dL Delta Bilirubin (0.0-0.2) mg/dL AST 69 H (17-59) U/L ALT 200 H (4-49) U/L Alkaline Phosphatase 139 H (38-126) U/L Lactate Dehydrogenase (313-618) U/L Microbiology - Last 24 Hours (Table) 12/02/21 20:09 Blood Culture - Preliminary Blood No Growth after 96 hours 12/02/21 19:55 Blood Culture - Preliminary Blood No Growth after 96 hours Assessment and Plan Plan: 1 acute COVID 19 related pneumonia. The patient became symptomatically on 11/19/2022. The patient has already received only one shot of messenger RNA Wire vaccine approximately a week prior to him being symptomatic. The patient is presenting with worsening shortness of breath and hypoxic respiratory failure. The patient has diffuse bilateral pulmonary infiltrates consistent with COVID [address] angiogram showed no evidence of any pulmonary embolism. The patient's condition is stable, the patient relates that over the past few days and the patient remains on oxygen at 5 L. Inflammatory markers remain elevated. The patient had a CAT scan of the chest that showed no evidence of any pulmonary embolism. There was bilateral pneumonia consistent with covered 19. His inflammatory markers including LDH remain elevated. D- dimer is mildly elevated. 2 acute hypoxic respiratory failure, currently on 4 L per minute nasal cannula 3 non-anion gap metabolic acidosis likely secondary to diarrhea and the bicarb is being replaced 4 elevated inflammatory markers secondary to above, inflammatory markers remain elevated including LDH 5 history of seizure disorders. Patient is well-controlled on medication Plan I advised staying in the hospital for further monitoring. The patient was adamant that he wanted to go home. If he decides to go home, he needs to go home and steroids and oxygen therapy and for that reason a I suggested that should be offered to this patient along with portable oxygen tanks. He needs also to have a pulse oximeter to monitor his O2 on outpatient basis. Again, our advised was to stay in the hospital for monitoring. The patient has opted to get himself discharge. Multivitamins including vitamin C and vitamin D and zinc supplements Resume medications including antiepileptic medication We'll be glad to follow this patient if he decides to discharge himself home. We can always seem on outpatient basis within the week time following his discharge for further advice if needed.
--- NOTE | 2021-12-08 00:45 | P.DS ---
Providers Date of admission: 12/02/21 23:53 Attending physician: Caterina Benton Consults: 12/02/21 23:49 Consult Physician Routine Consulting Provider: Saúl Brito Consult Reason/Comments: Respiratory failure secondary to COVID-19 pneumonia Do you want consulting provider notified?: Yes, Notify in am 12/06/21 10:07 Consult Physician Urgent Consulting Provider: Mannie King Consult Reason/Comments: high platelet count Do you want consulting provider notified?: Yes Primary care physician: Stated None Hospital Course: Date of service 12/07/2021 Diagnoses: Bilateral Covid pneumonia Acute hypoxic respiratory failure Increased inflammatory markers Elevated blood cell count, most likely secondary to Covid infection Mild elevated liver enzymes secondary to obesity and infection CTA of the chest: No pulmonary embolism, bilateral extensive multifocal infiltrates Hospital course: This is a pleasant 36 years old male with past medical history of seizure He presents with fever after he was diagnosed with Covid on 11/19, with associated fever and hypoxia since then. Also he noticed that he desaturates with exertion at home. Also he has some dry coughing. Patient was admitted with a diagnosis of bilateral: With pneumonia and acute hypoxic respiratory failure, he was followed closely by pulmonary service and treated with dexamethasone and multiple vitamins, vitamin C, vitamin D and zinc. As well as Lovenox and Pepcid. His oxygen saturation was fluctuation between 5 and 3 and on the day of discharge was 5 L/m remains stable over the last 3 days, he was feeling somewhat stronger but he still have some exertional dyspnea and he still have mild occasional coughing but no chest pain. No diarrhea and he has good appetite and tolerates diet well. No urinary complaints. Fever subsided, no nausea vomiting. No urinary complaints. Today patient was adamant to be discharged despite I have lengthy discussion with him as well as the pulmonary service at the bedside nurse about the risks of leaving a fairly, patient was getting agitated and he said he will monitor himself at home and if he become more sore desaturates then he will come to the hospital again. Eventually pulmonary service cleared him for discharge. Home oxygen delivered at his place as well as portable tank at bedside. Dr. King team was contacted and they cleared him for discharge with recommendation of aspirin daily ongoing home. Problems and management plan were discussed with the patient and he verbalized understanding and acceptance Patient was found stable and can be discharged home in guarded prognosis however he needs follow-up as an outpatient. Patient was instructed to follow up with PCP within one week and patient agrees. Patient states that he does not have PCP so he was instructed to call his medical insurance provider to find PCP and chromic appointment in 1 week. Also verbal and written instruction is provided for the patient to recheck his white cell count, platelet count and liver enzymes with his doctor and he verbalized understanding and acceptance. Patient was instructed to follow up with Dr. Allen of the career and transition teacher in 1 week and he agrees As well as with healthcare technician Dr. King for his thrombocytosis in 2-3 weeks and he agrees as well to call and make his own appointments Physical exam Gen: patient is a AAOx3, no distress CVS: S1-S2, RRR, no murmur -Lungs: B/L CTA, no wheezing. Mildly tachypneic. On nasal cannula with 5 L/m oxygen. Abdomen: soft, no distention, no tenderness, positive bowel sounds Extremity: no leg edema or induration Time spent more than 35 minutes Patient Condition at Discharge: Fair Plan - Discharge Summary Discharge Rx Participant: No New Discharge Prescriptions: New Dexamethasone [Decadron] 6 mg PO DAILY 5 Days #5 tablet Famotidine [Pepcid] 40 mg PO DAILY 7 Days #14 tab Acetaminophen Tab [Tylenol] 1,000 mg PO Q6HR PRN tab PRN Reason: Fever>101 Albuterol Inhaler [Ventolin Hfa Inhaler] 2 puff INHALATION Q6H PRN #8 gm PRN Reason: Shortness Of Breath Or Wheezing Ascorbic Acid [Vitamin C] 1,000 mg PO DAILY #60 tab Zinc Sulfate [Orazinc] 220 mg PO DAILY #30 cap Cholecalciferol [Vitamin D3 (25 Mcg = 1000 Iu)] 50 mcg PO DAILY #60 tablet Aspirin 81 mg PO DAILY #30 tab Continue Eslicarbazepine Acetate [Aptiom] 800 mg PO DAILY Topiramate 200 mg PO BID Amoxicillin/Potassium Clav [Augmentin 875-125 Tablet] 1 tab PO BID Discharge Medication List Amoxicillin/Potassium Clav [Augmentin 875-125 Tablet] 1 tab PO BID 12/02/21 [History] Eslicarbazepine Acetate [Aptiom] 800 mg PO DAILY 12/02/21 [History] Topiramate 200 mg PO BID 12/02/21 [History] Acetaminophen Tab [Tylenol] 1,000 mg PO Q6HR PRN tab 12/07/21 [Rx] Albuterol Inhaler [Ventolin Hfa Inhaler] 2 puff INHALATION Q6H PRN #8 gm 12/07/21 [Rx] Ascorbic Acid [Vitamin C] 1,000 mg PO DAILY #60 tab 12/07/21 [Rx] Aspirin 81 mg PO DAILY #30 tab 12/07/21 [Rx] Cholecalciferol [Vitamin D3 (25 Mcg = 1000 Iu)] 50 mcg PO DAILY #60 tablet 12/07/21 [Rx] Dexamethasone [Decadron] 6 mg PO DAILY 5 Days #5 tablet 12/07/21 [Rx] Famotidine [Pepcid] 40 mg PO DAILY 7 Days #14 tab 12/07/21 [Rx] Zinc Sulfate [Orazinc] 220 mg PO DAILY #30 cap 12/07/21 [Rx] Follow up Appointment(s)/Referral(s): Mannie King MD [STAFF PHYSICIAN] - 3 Weeks (follow up to ensure resolution of your platelet count) None,Stated [Primary Care Provider] - 1-2 days Saúl Brito MD [STAFF PHYSICIAN] - 1 Week (office closed-please make follow up appoitment in 1 week) Patient Instructions/Handouts: Coronavirus Disease 2019 (COVID-19), Viral Pneumonia (DC) Activity/Diet/Wound Care/Special Instructions: Call [facility] to notify them when you are discharged so home oxygen equipment can be delivered to your home - [phone] Low carbohydrate diet, 1800 kcal per day Activity is restricted till you see your doctor Please Call your health insurance provider to find nearby primary care doctor, call to make an appointment within 1 week. We recommend to follow up your liver enzymes, white cell count level and platelet level We recommend to repeat CAT scan and chest x-ray with your doctor in 4-6 weeks Discharge Disposition: HOME SELF-CARE
== END 2021-12-07 16:39 | disposition home or self-care (01) | DRG 177 ==
LOC: EC 17:53 → UNDOADMIN 23:53 → 4SSUR 23:53 → 3SCARD 23:53
PROVIDERS: ADMIT Internal Medicine; ATTEND Internal Medicine
DX: U07.1 COVID-19 (principal); J96.02 Acute respiratory failure with hypercapnia; J12.82 Pneumonia due to coronavirus disease 2019; J96.01 Acute respiratory failure with hypoxia; E87.2 Acidosis; R45.1 Restlessness and agitation; R19.7 Diarrhea, unspecified; G40.909 Epilepsy, unspecified, not intractable, without status epilepticus; R94.5 Abnormal results of liver function studies; E66.9 Obesity, unspecified; Z68.30 Body mass index [BMI] 30.0-30.9, adult; D75.839 Thrombocytosis, unspecified; D72.810 Lymphocytopenia; T38.0X5A Adverse effect of glucocorticoids and synthetic analogues, initial encounter; D72.829 Elevated white blood cell count, unspecified; Z79.01 Long term (current) use of anticoagulants; Z79.899 Other long term (current) drug therapy
CPT/HCPCS: 36415; 71045; 71046; 71275; 80048; 80053; 80076; 82728; 82784; 83605; 83615; 83735; 84145; 84484; 85025; 85379; 85384; 85610; 86140; 87040; 87636; 93005; 93970; 94640; 94760; 96360; 99285